=== PATIENT | male | born 1945 | race Caucasian/White ===

== ENCOUNTER 2023-09-08 10:31 | Day surgery (SDC) | payer MEDICARE, OTHER, SELFPAY ==
[2023-09-08] VITALS (13 sets, daily range): BP systolic 117–150; BP diastolic 68–95
--- NOTE | 2023-09-08 07:53 | CONSULT.STRU ---
Addendum entered and electronically signed by VITA Akins 09/15/23 12:52:
Reviewed Mr. Moran with Drs. Brothers and Nona. Both are agreeable that patient is an appropriate candidate for a TF TAVR utilizing a #26mm S3. He has completed his preadmission testing 09/14 for potential TAVR 09/16. He has been informed of the risks
of TAVR including ppm, vascular injury, and stroke. Spoke to Mr. Lomax today (09/15) and informed him to arrive to CVICU on (09/16) at 0530. He should take his 81 mg aspirin DEVELOPMENTAL PSYCHOLOGIST. Allowed for and answered questions. TT sent to Drs. Kumar and Rosalba
to inform them of plan.
Original Note:
Consultation
-
Date/Time Consultation Requested: 09/08/2023 14:30
Date/Time Consultation Performed: 09/08/2023 1445
Requesting Provider: Artemio Kumar MD
Performing Provider: VITA Akins
Reason for Consultation: /TAVR
Patient History
Physicians
Family Physician: Tonio Sepulveda MD
Outpatient Supply Chain Tech: Madi Navarrete MD
Primary Supply Chain Tech: Madi Navarrete MD
History of Present Illness
Mr. Moran is a very pleasant 78 yom that presents with critical asymptomatic aortic stenosis. Patient states he is very active and continues to have the same exercise tolerance that he had one year ago. However, he states he had a brief episode
while lifting weights describing the sensation of a 'light bulb dimming'. Echocardiogram from 08/10/2023 is notable for EF 63.6%, AOV Scott: 5.78m/s, AV P/M 133.7/74.6mmHg, AoVA: 0.47, DI 0.15, Mild to moderate MR, RVSP: 33.2 mmHg. Cardiac
catheterization from 09/08/2023 shows clean coronary arteries. Discussed the TAVR evaluation process comprising of CT scan, CT surgery consult, dental clearance, and a heart team discussion. TAVR booklet, contact information, prescriptions, and
appointments given to patient. allowed for and answered questions at bedside.
Past Medical History
Past Medical History: HTN, GAURANG (unable to tolerate CPAP), Valvular Disease (Severe-critical ) and Other (mixed hyperlipidemia, RBBB)
Past Surgical History
Past Surgical History: Orthopedic (bilateral shoulder surgeries)
Dental History
Routine dental care with [facility]. Has recently changed practices to [facility].
Family History
Mother: at Age (69) and Cause of (bone cancer)
Father: at Age (85) and Cause of (multiple strokes)
Social History
Alcohol: Occasional (1-2 drinks/ week)
Drug: None
Tobacco: Former Smoker
Personal:
Living: With Spouse
Employment: Retired (Retired [employer]. 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
Allergies
Allergy/AdvReac Type Severity Reaction Status Date / Time
No Known Allergies Allergy Unverified 09/22/18 08:23
Home Medications
Medication Instructions Recorded Confirmed Type
Co Q-10 1 tab PO DAILY 02/18/17 05/05/21 History
losartan 50 mg tablet 50 mg PO DAILY 02/18/17 05/05/21 History
multivitamin-ferrous 1 ea PO DAILY 02/18/17 05/05/21 History
fumarate-folic acid 18 mg-400 mcg
tablet (Centrum)
omega 9-xkl-hzs-fish oil 300 1 ea PO DAILY 02/18/17 05/05/21 History
mg-1,000 mg capsule (Fish Oil)
pravastatin 20 mg tablet 20 mg PO HS 02/18/17 05/05/21 History
vit C 250 mg-vit E 90 mg-zinc 40 1 ea PO BID 02/18/17 05/05/21 History
mg-copper 1 od-dfrbjh-wplhlt
capsule (PreserVision AREDS-2)
albuterol sulfate 90 mcg/actuation 8.5 gm IH PRN PRN sob 05/05/21 05/05/21 History
aerosol inhaler
doxycycline hyclate 100 mg capsule 100 mg PO Q12 05/05/21 05/05/21 History
STS%
STS %: 1.1
Review of Systems
-
History Source: Patient
General: Reports No Symptoms
HEENT: Reports No Symptoms
Respiratory: Reports No Symptoms
Cardiac: Reports No Symptoms
Abdomen/GI: Reports No Symptoms
: Reports No Symptoms
Neurological: Reports No Symptoms
Physical Exam
Labs
07/09/2024:
HH: 13.7/40.9
Plt: 182K
BUN/Creatinine: 21/0.94
GFR: 83
Diagnostic Studies
07/09/2023 EKG:
RBBB, LVH
08/10/2023 Echocardiogram:
EF 63.6%
AOV Scott: 5.78m/s, AV P/M 133.7/74.6mmHg, AoVA: 0.47, DI 0.15
Mild to moderate MR
RVSP: 33.2 mmHg
Exam
General: Well Developed, Well Nourished and No Apparent Distress
HEENT: Normocephalic and Moist Mucous Membranes
Respiratory: Clear
Cardiac: Regular Rhythm and Murmur (III/ WILLY)
GI: Soft, Non Tender and Non Distended
Rectal: Deferred by Provider
Skin: Warm and Dry
Neuro: Awake, Alert and Oriented
Psych: Calm
Assessment / Plan
-
Aortic Stenosis
Continue TAVR Evaluation
Trend Creatinine after contrast (Rx given)
CT TAVR (09/15)
CT surgical consult (09/09)
Frailty testing and [id number] at consult
Will need to start aspirin prior to TAVR
Dental clearance
Heart team discussion
Data Reviewed
-
EKG: Tracing Personally Visualized and interpreted and Report Reviewed by me
Dining Car Steward: Discussed with Physician
Echo: Report Reviewed by me
Labs: Labs Reviewed by me
Old Records: Reviewed (OV from Dr. Navarrete)
Total Time Spent with Patient (in minutes): 45
[2023-09-08] MEDS: LOW STRENGTH ASPIRIN 324 MG PO (13:42)
[2023-09-08] MEDS: NSS 1000 IV ×2 (16:03→16:08)
--- NOTE | 2023-09-10 17:35 | ITS.CL.CATH ---
Transporter Driver - Catheterization
Cardiac Catheterization
Procedure Report:
LEFT HEART CATHETERIZATION
Date of Procedure: September 10, 2023
Procedures performed:
1: Coronary angiography
Primary Care Physician: Dr. Tonio Sepulveda
Primary Airplane Engineer: Dr. Madi Navarrete
INDICATION: The patient is a 78-year-old man with critical aortic stenosis referred for coronary angiography.
ACCESS: The patient was prepped and draped in usual sterile fashion. A 6 Macedonian sheath was placed in the right radial artery using the Seldinger over the wire technique.
HEMODYNAMIC FINDINGS (mmHg):
LV(s/d,EDP): Valve not crossed
Ao(s/d,m): 115/67, 86
ANGIOGRAPHIC FINDINGS:
Single-plane Left Ventriculography in MATTHEWS Projection: Valve not crossed. Normal LVEF by recent echo with a mean gradient over 70 mmHg.
Coronary Angiography:
Dominance: Right
Left Main: Normal
Left Anterior Descending: The LAD is a large-caliber vessel that gives rise to 1 major diagonal branch. These vessels are widely patent with normal distal flow.
Left Circumflex: The left circumflex is a relatively large nondominant system that gives rise to 1 large obtuse marginal branch that is widely patent with mild to moderate nonobstructive luminal irregularity.
Right Coronary: The right coronary artery is a large-caliber vessel that gives rise to a large caliber posterior descending artery and large posterior left ventricular branch. These vessels are widely patent with only mild luminal irregularities.
Fluoroscopy Time (min): 1.3
Radiation Dose (mGy): 155
DAP (Gy.cm2): 10.3
Closure device: None. A TR band was applied for hemostasis at the right wrist.
Complications: None.
ASSESSMENT:
1: Mild nonobstructive coronary artery disease
CONCLUSIONS and RECOMMENDATIONS:
1: Proceed with planned TAVR workup.
Salvador Kumar M.D.
Copy to: Dr. Tonio Sepulveda
== END 2023-09-08 17:30 | disposition home or self-care (01) ==
LOC: CATH 10:31
PROVIDERS: ATTENDING PHYSICIAN Internal Medicine Interventional Cardiology; FAMILY PHYSICIAN Family Medicine; OTHER PHYSICIAN Internal Medicine Cardiovascular Disease
DX: I35.0 Nonrheumatic aortic (valve) stenosis (principal); I25.10 Atherosclerotic heart disease of native coronary artery without angina pectoris; I10 Essential (primary) hypertension; E78.2 Mixed hyperlipidemia; G47.33 Obstructive sleep apnea (adult) (pediatric); Z87.891 Personal history of nicotine dependence
CPT/HCPCS: 93454; C1894; Q9967

== ENCOUNTER 2023-09-16 05:33 | Inpatient (IN) | payer MEDICARE, OTHER, SELFPAY ==
[2023-09-14 09:16] VITALS: BMI 27.7
[2023-09-14 09:59] LABS: % Basophils 0.8 % (0-2); % Eosinophils 3.8 % (0-6); % Immature Granulocytes 0.5 % (0-0.5); % Lymphocytes 21.8 % (20.5-51.1); % Monocytes 12.1 % (1.7-9.3); Absolute Eosinophils 0.1 10^3/uL (0-0.7); Absolute Lymphocytes 0.8 10^3/uL (1.2-3.4); Absolute Monocytes 0.5 10^3/uL (0.1-0.6); Absolute Neutrophils 2.3 10^3/uL (1.4-6.5); Hematocrit 39.1 % (39.0-52.0); Hemoglobin 13.7 g/dL (13.0-18.0); Mean Corpuscular Hgb 31.4 pg (27.0-31.0); Mean Corpuscular Volume 89.5 fL (80.0-94.0); Nucleated Red Blood Cells % 0 % (-); Platelet Count 173 10^3/uL (130-400); Red Blood Cell Count 4.37 10^6/uL (4.70-6.10); White Blood Cell Count 3.7 10^3/uL (4.8-10.8)
[2023-09-14 10:16] LABS: ALT (SGPT) 18 U/L (0-50); AST (SGOT) 26 U/L (17-59); Albumin 3.7 g/dl (3.5-5.0); Alkaline Phosphatase 61 U/L (38-126); Blood Urea Nitrogen 22 mg/dl (9-20); Calcium 9.1 mg/dl (8.4-10.2); Carbon Dioxide 28 mmol/L (22-30); Chloride 100 mmol/L (98-107); Direct Bilirubin 0.3 mg/dl (0.0-0.4); Estimated Creatinine Clearance 70 ml/min; Glucose 114 mg/dl (70-99); Potassium 4.4 mmol/L (3.5-5.1); Sodium 135 mmol/L (135-145); Total Bilirubin 0.7 mg/dl (0.2-1.3); Total Protein 6.2 g/dl (6.3-8.2); eGFR > 60.00
[2023-09-14 10:19] LABS: Urine Albumin Negative (Neg - Trace); Urine Bilirubin Negative (Negative); Urine Character Clear (Clear); Urine Color Yellow; Urine Glucose Negative (Negative); Urine Ketone Negative (Negative); Urine Leukocyte Negative (Negative); Urine Nitrite Negative (Negative); Urine Occult Blood Negative (Negative); Urine Urobilinogen Negative (Neg - 1+)
[2023-09-14 10:25] LABS: APTT 30.4 Sec (23.4-35.0); INR 1.08; PT 13.9 Sec (11.4-14.6)
[2023-09-14 10:27] LABS: NT-proBNP 1050 pg/ml
[2023-09-14 11:43] LABS: Glycohemoglobin (HgbA1c) 5.6 % (4.0-5.6)
--- NOTE | 2023-09-14 13:18 | CM ---
spoke to pt in PAT's, we discussed pre op TAVR teaching in including lifting and driving restrictions.. he is prev indep, lives with his in a split level home with 2 steps to enter. he has a CPAP but hasnt been wearing because he does not like
his mask. he has the TAVR educ book, soap and instructions. he is agreeable to a f/u visit from the ct transitional care nurse after dc. plan is for TAVR 09/16, cm role explained and all questions answered.
[2023-09-16] VITALS (21 sets, daily range): BP systolic 96–168; BP diastolic 56–91; BMI 27.0
[2023-09-16] MEDS: LOW STRENGTH ASPIRIN 324 MG PO (06:05)
--- NOTE | 2023-09-16 06:15 | PTCARENOTE ---
Pt rec'd as direct admit from home for tavr. Pt was prepped with chg wipes, clipped and new iv started in right forearm. Adm hx taken and recorded.
4 baby asa given after pt stated he forgot to take at home. Spouse at bedside
--- NOTE | 2023-09-16 06:20 | W.CVOR.SURPR ---
CVOR Surgeon Immed Pre Op
-
I have examined this patient prior to performance of the scheduled procedure.
The patient's condition is unchanged from the time of the dictated/written History and
Physical and the patient is able to undergo the scheduled procedure.
TF TAVR
[2023-09-16 08:18] LABS: ACT-LR - POC 300 Seconds (116-155)
--- NOTE | 2023-09-16 08:43 | W.PN.UPDATE ---
Update Note
Progress Note Update
Reviewed Mr. Lomax with the heart team in the preTAVR SDM meeting and confirmed a 26 mm S3 via right transfemoral access. Patient will resume 81 mg aspirin daily post TAVR. LVEDP 35mmHg. #26mm S3 (serial# [id number]) successfully deployed via right
transfemoral access. Post implant MG 7 mmHg.
--- NOTE | 2023-09-16 09:21 | W.PN.CT.SURG ---
CT Surgery Operative Note
-
OPERATIVE REPORT
Preoperative Diagnosis: Severe aortic valve stenosis, symptomatic
Postoperative Diagnosis: Same
Procedure(s) Performed: Right trans femoral TAVR with a 26 mm Franco TAVR valve with pre-TAVR balloon valvuloplasty
Date of Procedure: 09/16/2023
Comorbidities:
1. Severe aortic stenosis, symptomatic
2. Acute on chronic congestive heart failure, LVEDP pre-TAVR was 33 mmHg
3. Hypertension
4. Hyperlipidemia
5. Carotid artery stenosis
6. History of skin cancer
Cardiac Surgeon: Jarrell Castellano MD, MS
Defective Cigarette Slitter: Kat Brothers MD
Anesthesia: Conscious Sedation and Local Analgesia
EBL: 100cc
Products: none
Implant: 26 mm Franco TAVR valve, SN: [id number]
Indication(s) for Procedures: 78-year-old male with symptomatic severe aortic stenosis. Gradients were critical in the 70s with a mean and velocities were in the 5 m/s range. CT-TAVR protocol revealed acceptable anatomy for TAVR access and
implantation.
Start time: 0743hrs
Deployment time: 0820hrs
End time: 0833hrs
Radiation Dose (mGy): 378.45
DAP (cm2.Gy): 41.9574
Fluoroscopy time (minutes): 11.2
Contrast volume (ml): 61
TAVR gradient (mmHg): 7mmHg
Heparin Dose: 6800units
Protamine Dose: 40mg
Final Valve Positionin/10
Findings: Preoperative LVEF was 65% and was 65% following TAVR without inotropic support. Function was overall normal without regional wall motion abnormalities or dyskinesia. The aortic valve was well seated with only trace detectable PVL and mean
gradient across the new valve was 7mmHg. the patient had a pre-existing right bundle branch block that remained the same postoperatively. After short period of junctional rhythm he regained sinus rhythm without requiring pacing and had the same
baseline right bundle branch block. There was successful placement of 26 mm TAVR valve without acute complications. Pre-TAVR LVEDP measurement was 33 mmHg indicating acute on chronic congestive heart failure. Lasix will be given in the ICU
setting.
Access:
1. Device -right common femoral artery, perclose x 2
2. Pigtail -right radial with TR band
3. Transvenous Pacer -left common femoral vein
Description of Procedure: The patient was taken to the labor custodian. Their identity and procedure to be performed were verified and they were positioned supine on the labor custodian table. Induction via conscious sedation. The patient was then prepped and
draped from chin to thigh in a sterile fashion. A preoperative time-out was performed with all members of the team present. Arterial and venous access was performed using fluoroscopy and ultrasound guidance with micropuncture and Seldinger
technique. Two perclose devices were used on the device side followed by access to the aorta with a stiff wire to facilitate E-sheath placement. Heparin was given. A stiff straight wire and AL-1 catheter was used to cross the aortic valve. An LVEDP
was measured here pre-TAVR deployment. The stiff wire was exchanged for an extra stiff coiled tip wire. The valve was prepped and mounted on to the device carrier. An ACT of >250 was achieved. A 22 mm Z-Med balloon was then prepped and placed
across the valve and under rapid placing was inflated with good effect. Balloon was then withdrawn from the device she has and we verified x 3 that the valve was mounted in the correct orientation with the skirt of the valve directed toward the tip
of the device carrier. We advanced the device into the descending thoracic aorta where the valve was them mounted onto the balloon under fluoroscopy. The device was flexed and advanced over the arch into the root and positioned across the aortic
valve. Contrast fluoroscopy was used to visualize the prosthesis across the valve and to guide positioning. A pigtail catheter in the RCC as used as a guide. We aimed to have the bottom of the device marker at the annular hinge point. The device
sheath was pulled back. We performed a quick pre-deployment time out. The pacer was turned on and had capture. Blood pressure fell accordingly, angiography was done to verify the intended final placement and the valve was deployed with 5 seconds of
rapid pacing to nominal volume. The balloon was deflated and the pacer was turned off. We had recovery of vitals. The device carrier was unflexed and positioned back in the descending thoracic aorta. A transthoracic echocardiogram was performed. The
device was removed from the E-Sheath maintaining wire access followed by removal of the E-sheath as we cinched down the perclose devices. There was acceptable hemostasis. The pigtail was exchanged for a longer pigtail and advanced into the
descending/abdominal and completion aortogram with runoff run-off angiography was performed. There was no stenosis or dissection of bilateral iliofemoral systems. There was acceptable hemostasis of bilateral groins and manual pressure was held
following wire removal. A TR band was applied to the right radial puncture site. Low dose protamine was administered.
All instrument, sponge, and needle counts were confirmed to be correct x 2 at the end of the operation. The patient was transferred to the cardiac intensive care unit in stable condition.
I, Dr. Jarrell Castellano, was present, scrubbed for, and performed all critical elements of this procedure.
Jarrell Castellano MD
Cardiothoracic Surgeon
[facility]
This operative dictation was created using the [employer] dictation system. Please excuse any grammatical, typographical, or 'sound alike' errors
--- NOTE | 2023-09-16 10:46 | PTCARENOTE ---
Assumed care of pt upon tsf from CCL post TAVR. Pt arrives on unit awake and alert, Ox3. VSS. Right radial band intact with good CMS. Bilateral groins remain intact. He denies any pain or discomfort. Neuro signs WNL. Will continue to monitor
closely. at bedside.
--- NOTE | 2023-09-16 11:50 | ITS.CL.TAVR ---
Library Clerk - TAVR Report
TAVR PRocedure
Procedure Report:
TRANSCATHETER AORTIC VALVE REPLACEMENT
Date of Procedure: September 16, 2023
Referring: Drs. Madi Navarrete and Salvador Kumar
Operators: Drs. Kat Brothers and Jarrell Castellano
PROCEDURE PERFORMED:
1. Successful placement of 26 mm Franco Alexis S3 aortic valve via right common femoral approach.
PREPROCEDURE NYHA CLASS: II
DESCRIPTION OF PROCEDURE: The patient was referred for assessment of severe symptomatic aortic stenosis and following a comprehensive evaluation it was felt that transcatheter aortic valve replacement (TAVR) would be the most appropriate treatment.
Informed consent was obtained prior to the procedure. A 'time-out' was called and the procedural plan was verbally confirmed by anesthesia, surgery, perfusion, and kiln labourer staff.
Arterial and venous access site were obtained in the right radial artery and left common femoral vein using ultrasound guidance and micropuncture technique. 6 Fr. sheaths were inserted.
A 5 Fr. transvenous pacing wire was advanced to the right ventricle where excellent pacing thresholds were obtained.
A 5 Fr. pigtail catheter was then advanced to the proximal ascending aorta / right aortic cusp where angiography was performed in multiple angles to define the co-planar angle that was most appropriate valve deployment (URDU 6/ CAU 23).
Ultrasound guidance was then used to obtain arterial access in the right common femoral artery and a 8 fr. sheath was inserted. Angiography was performed and the arteriotomy site appeared appropriate for preclosure with two Perclose devices. An 8
Fr sheath was then inserted back into the common femoral artery over a J-tipped guidewire. An AL1 catheter was positioned in the proximal descending aorta. An Amplatz extra-stiff 0.035' J-tip wire was inserted to provide extra-support to
facilitate the Franco eSheath delivery. The 16 Fr. Franco eSheath was successfully advanced in the descending thoracic aorta.
An AL1 catheter was advanced through the Franco eSheath over a 0.035' J-tip guide wire. The AL1 catheter was positioned just above the aortic valve. A 0.035' Straight tip wire probed the aortic valve and crossed the stenotic leaflets. The AL1
was then advanced to the mid left ventricle. Invasive left ventricular end-diastolic pressure was noted to be elevated at 33 mmHg. An Amplatz Extra-stiff wire with a generous curved tip was then positioned in the left ventricular apex. A 26 mm
Franco Alexis S3 valve was brought to the table and the orientation of the valve on the balloon delivery system was confirmed by all operators. Given significantly elevated trans aortic gradients, decision was made to perform a balloon aortic
valvuloplasty with a 22 mm Z-Med balloon with excellent expansion. The Alexis S3 valve was advanced through the eSheath and into the proximal descending thoracic aorta. The Alexis S3 valve was centered on the delivery balloon and the entire system
was retroflexed as it crossed the aortic arch. The Alexis S3 delivery system was then advanced across the stenotic valve and the 26 mm Alexis S3 valve was deployed during rapid pacing. The valve deployment was uneventful. Transthoracic
echocardiographic images post valve deployment revealed minimal aortic insufficiency with excellent position of the aortic prosthesis.
The Franco balloon and delivery system were then removed. The Franco sheath was removed and the Perclose knots were advanced to the arteriotomy site resulting in excellent hemostasis. A vascular band was placed over the right radial arterial site
with successful hemostasis.
Fluoro Time: 11.2 min, Dose: 378.45 mGy, DAP : 41.9 Gy.cm2
CONCLUSIONS:
1. Severe symptomatic aortic stenosis. Successful deployment of a 26 mm Alexis S3 valve with minimal aortic insufficiency post procedure
2. Successful arteriotomy closure with 2 Perclose devices over right common femoral arterial site. A vascular band was placed over the right radial arterial site with successful hemostasis (10cc air).
3. Acute on chronic diastolic heart failure, LVEDP elevated at 33 mmHg.
Copy to: Madi Navarrete and Salvador Kumar
Kat Brothers MD, FAC, [facility]
--- NOTE | 2023-09-16 11:57 | CM ---
Chart reviewed. Patient is in the OR today. Patient is independent of ADLS, lives with his in a split level house iwth 2 DARA, 0 DME. Plan is for the patient to return home with CT Transitional RN. CM to follow
[2023-09-16] MEDS: THERAGRAN 1 TABLET PO (12:55)
[2023-09-16] MEDS: LASIX 20 MG IV (12:55)
--- NOTE | 2023-09-16 13:21 | PTCARENOTE ---
R-band removed as ordered, DSD applied, site intact. Lasix 20 mg IV and Multivitamin given as ordered.
[2023-09-16] MEDS: ZINACEF 750 MG IV (13:55)
[2023-09-16] MEDS: STERILE WATER FOR INJECTION 8.30000000000000071 ML IV (13:55)
[2023-09-16] MEDS: TYLENOL 650 MG PO (16:05)
--- NOTE | 2023-09-16 16:16 | PTCARENOTE ---
Tylenol 650 mg given po as per SEP for h/a pain 10/09.
[2023-09-16] MEDS: FLOMAX 0.400000000000000022 MG PO (22:22)
[2023-09-16] MEDS: MELATONIN 5 MG PO (22:27)
--- NOTE | 2023-09-16 23:34 | PTCARENOTE ---
Pt received start of shift, HR SR/SB w/ BBB and prolonged QT 50s-90s. Pt's neuro wnl. Pt OOB in chair. R radial site dressing CDI. R groin site CDI, L groin site CDI. Pt denies any CP, SOB, or lightheadedness/dizziness at this time. Informed to
notify RN if any changes, call alvarado within reach.
[2023-09-17 02:55] VITALS: BP 132/69
[2023-09-17 03:37] LABS: Hemoglobin 12.9 g/dL (13.0-18.0); Mean Corp Hgb Conc. 34.9 g/dL (33.0-37.0); Mean Corpuscular Hgb 31.8 pg (27.0-31.0); Mean Corpuscular Volume 91.1 fL (80.0-94.0); Mean Platelet Volume 10.9 fL (7.4-10.4); Platelet Count 141 10^3/uL (130-400); Red Blood Cell Count 4.06 10^6/uL (4.70-6.10); Red Cell Dist. Width 12.2 % (11.5-14.5); White Blood Cell Count 8.1 10^3/uL (4.8-10.8)
[2023-09-17 04:00] LABS: Blood Urea Nitrogen 20 mg/dl (9-20); Calcium 8.6 mg/dl (8.4-10.2); Carbon Dioxide 29 mmol/L (22-30); Chloride 103 mmol/L (98-107); Estimated Creatinine Clearance 71 ml/min; Glucose 108 mg/dl (70-99); Sodium 135 mmol/L (135-145); eGFR > 60.00
--- NOTE | 2023-09-17 05:38 | W.PN.CT ---
Today's Communication / Plan
-
-pod #1
-no issues overnight
-known RBBB
-nsr 60s overnight. No harlan or pauses
-diuresed with 20 iv Lasix 09/16 (UO unmeasured)
-Echo today
-current meds (ASA, Cozaar, Flomax)
-encourage IS, OOB
-likely d/c soon
Assessment / Plan
-
- Severe symptomatic AV stenosis - s/p Right trans femoral TAVR with a 26 mm Franco TAVR valve with pre-TAVR balloon valvuloplasty on 09/16/23, pod #1
- Acute on chronic diastolic congestive heart failure, LVEDP pre-TAVR was 33 mmHg
- TTE: preop and postop LVEF was 65% without inotropic support, no regional wma or dyskinesia. The aortic valve was well seated with only trace detectable PVL and mean gradient across the new valve was 7mmHg.
- After short period of junctional rhythm, he regained sinus rhythm without requiring pacing and had the same baseline right bundle branch block.�
- HTN/HLD
- Pre-existing RBBB
- Carotid artery stenosis
- History of facial BCC skin cancer- s/p Mohs
- L RTC repair
- Cataract repair
�
Discussed patient care with: Nursing and Care Team
Subjective
Procedure
- s/p Right trans femoral TAVR with a 26 mm Franco TAVR valve with pre-TAVR balloon valvuloplasty on 09/16/23
-
Date of Service: September 16, 2023
Objective Data
-
Lab Results
09/14/23 09:28
09/14/23 09:28
PT 13.9 Sec (11.4-14.6) 09/14/23 09:28
INR 1.08 09/14/23 09:28
APTT 30.4 Sec (23.4-35.0) 09/14/23 09:28
Vital Signs
Vital Signs
Temp Pulse Resp BP Pulse Ox
98.0 F 60 18 155/80 98
09/16/23 20:40 09/16/23 21:45 09/16/23 20:40 09/16/23 19:15 09/16/23 20:40
SaO2: 98
Physical Exam
-
General: Awake and AOx3
Cardiovascular: Regular rate & rhythm, No Murmurs and No Rub
Respiratory: Clear
Incision: Other (groins are cdi, soft, nontender, no hematoma b/l)
Extremities: No Edema
Data Reviewed
-
Lab Results: Results Reviewed
Medications: Active Meds Reviewed
Chest X-Ray: Report Reviewed and Image Reviewed
ECG: Report Reviewed and Image Reviewed
--- NOTE | 2023-09-17 07:26 | W.PN.ANS.POP ---
Anesthesia Post Operative
- Anesthesia Post Op Note
Vital Signs Stable-See Nursing Note: Yes
Airway Patent: Yes
Adequate Pain Control: Yes
Change in Mental Status: No
Current Postoperative Nausea & Vomiting: No
Anesthesia Complications: No
General Anesthetic Recall: No
Unplanned Admission: No
Post Op Hydration Adequate: Yes
[2023-09-17 07:29] VITALS: BP 120/60
--- NOTE | 2023-09-17 07:50 | W.DCSUMMARY ---
Discharge Summary
Discharge Data
Date of Admission: 09/16/23
Date of Discharge: 09/17/23
-
Pending Results: No
Hospital Course
Primary care physician:
Dr. Tonio Sepulveda
Outpatient commissioned fire officer:
Dr. Navarrete
Inpatient consultants:
[facility]
Procedures:
1. Right trans femoral transcatheter aortic valve replacement with a 26 mm Franco transcatheter aortic valve replacement valve with pre- transcatheter aortic valve replacement balloon valvuloplasty
Primary Diagnosis:
1. Severe aortic valve stenosis, symptomatic
Secondary Diagnoses:
1. Acute on chronic congestive heart failure
2. Hypertension
3. Hyperlipidemia
4. Carotid Artery Stenosis
HPI: 78-year-old male with symptomatic severe aortic stenosis.� Gradients were critical in the 70s with a mean and velocities were in the 5 m/s range. CT- transcatheter aortic valve replacement protocol revealed acceptable anatomy for
transcatheter aortic valve replacement access and implantation.
Hospital course:
78-year-old male electively admitted for a transcatheter aortic valve replacement with Dr. Castellano on 09/16. 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
LVEDP of 33. EKG postoperatively did not show any changes. He was sent to IVU for the rest of his recovery. On 07/17 postop day #1, groins remained stable. Chest x-ray remained stable. And repeat echocardiogram showed a peak/mean gradient of
22/45. he was started on Toprol-XL 12.5mg and instructed to get a follow up echocardiogram 30 days post-procedure. Patient was deemed stable for discharge and there were no significant changes to home medications.
Home medication changes:
Started:
Aspirin 81mg PO Daily fpr valve patentcy
Toprol-XL 12.5mg PO daily was started for blood pressure and heart rate control
Discharge Plan
-
Patient Disposition: Home (Routine Discharge)
Discharge Diagnosis/Procedures: /TF TAVR
Condition: Fair
Diet: Low Sodium
Activity: No strenuous activity
Driving Restrictions: No driving for 1 week
Bathing Restrictions: OK to Shower
Others Tests: Please call Dr. Navarrete's office to schedule Echocardiogram in 30 days
Wound Care: No creams,lotion or powder to puncture sites
Call if pain,swelling or drainage appear
Specialty Instructions: Weigh Daily- Call MD for wt gain/loss 3 lbs overnight/5 lbs in 1 week
Referrals:
CT Transitional Care Nurse [Outside] (The Cardiothoracic Transitional Care Nurse will call you to set up a visit in 1-2 days.)
[facility] [Outside]
(Cardiac Rehab Orientation appointment is on 10/25/2023 @ 1pm.
The Cardiac Rehab gym is located on the first floor of the [facility].)
Salvador Navarrete MD [Affiliate] - 10/08/23 11:15 am
Tonio Sepulveda MD [Family Provider] -
Prescriptions:
New
acetaminophen 325 mg Tablet
650 mg PO Q6HPRN PRN (Reason: XIE, mild pain, or fever >101F) Qty: 0 0RF
aspirin 81 mg Tablet,Delayed Release (Dr/Ec)
81 mg PO DAILY Qty: 0 0RF
metoprolol succinate [Toprol XL] 25 mg tablet extended release 24 hr
12.5 mg PO DAILY Qty: 30 0RF
Continued
losartan 50 MG tablet
100 mg PO DAILY
tamsulosin 0.4 mg Capsule
0.4 mg PO HS
cholecalciferol (vitamin D3) [Vitamin D3] 10 mcg (400 unit) Capsule
50 mcg PO DAILY
melatonin 5 mg Tablet
5 mg PO HS PRN (Reason: as needed)
Centrum Men 8 mg iron- 200 mcg-600 mcg Tablet
1 tab PO DAILY
Prevagen
1 dose PO DAILY
Discontinued
terbinafine HCl 250 mg Tablet
250 mg PO DAILY
biotin
1 dose PO DAILY
Care Plan Goals
Care Plan Goals:
Problem: Readiness for enhanced knowledge related to diagnosis and treatment plan
Goal: Understand your diagnosis and treatment plan needs, including medications if applicable.
Instructions: Know your diagnosis, underlying causes and treatment plan options, including medications if applicable. Consult with your health care team to learn about your diagnosis and treatment plan, including medications if applicable.
--- NOTE | 2023-09-17 08:54 | W.PN.CARDCBS ---
Addendum entered and electronically signed by Sascha Loomis MD 09/17/23 09:52:
78-year-old man with severe aortic stenosis, hypertension, hypercholesterolemia, sleep apnea, baseline right bundle branch block, cerebrovascular disease who underwent TAVR yesterday with a 26 mm Franco ALEXIS 3 on September 16. He had transient
junctional rhythm but no left bundle branch block
PMH: As noted above, PSH/FH/SH: Reviewed
Medications reviewed
Allergies none
ROS negative except as above
132/69, pulse 66, respiratory 20, afebrile
Head neck exam unremarkable
Lungs are clear
Relatively soft systolic murmur across precordium
Abdomen benign
Puncture sites look okay
Neuro nonfocal
Musculoskeletal intact's
Pulses palpable
Chest x-ray NAD
ECG sinus rhythm, normal CO interval, right bundle branch block, LVH, rightward axis, ST and T wave changes, no changes
Hemoglobin 12.9, white count 8.1, BUN and creatinine 20 and 0.86
He had junctional rhythm initially at time of valve deployment
Echo 09/17/2023: LVH with very dynamic left ventricle, possible LVOT obstruction, peak/mean aortic valve gradient 45/23, had been 13/7. Trace aortic regurgitation
Impression:
Status post 26 Franco ALEXIS 3 TAVR 09/16
Baseline right bundle branch block
Junctional rhythm at valve deployment
Increased aortic valve gradient postprocedure day 1
Hypertension
Sleep apnea
Plan:
Overall, he looks well. However his aortic valve gradients are elevated. Discussed with TAVR team, nothing further required at present, but will repeat echo in [address] Navarrete is aware.
Increased gradient could be dynamic LVOT obstruction, will add metoprolol ER 12.5 mg a day.
Given junctional rhythm and baseline right bundle branch block we will arrange for rhythm*at discharge.
Discussed with patient. Okay for discharge.
Original Note:
Today's Communication / Plan
-
Patient doing well status post TAVR postop day 1
Post TAVR echo pending
Good response to IV Lasix without symptoms of heart failure
Stable rhythm
If post TAVR echo stable discharge home today
Impression / Plan
-
PCP: Tonio pina
Outpatient forensic ballistics expert: Dr. Navarrete
Impression:
Severe symptomatic aortic stenosis
Successful placement of 26 mm Franco Alexis S3 aortic valve via right common femoral approach (09/16/2023)
HTN/HLD
GAURANG
Pre-existing RBBB
Carotid artery stenosis
History of facial BCC skin cancer- s/p Mohs
L RTC repair x 2
Cataract extraction
Echo 09/16/2023: preop and postop LVEF was 65% without inotropic support, no regional wma or dyskinesia. The aortic valve was well seated with only trace detectable PVL and mean gradient across the new valve was 7mmHg.
Echo 09/17/2023: pending
Plan:
-Severe symptomatic aortic stenosis s/p 26 mm Franco Alexis S3 aortic valve via right common femoral approach (09/16/2023)
-Patient reports that he is feeling well. He is able and able to ambulate around the unit without any chest pain, shortness of breath dizziness or lightheadedness.
-Post TAVR aortic valve mean gradient 7 mmHg. Echo 09/17/2023 pending.
-Hemoglobin stable 12.9. Continue aspirin 81 mg daily
-Known right bundle branch block prior to TAVR. No arrhythmias noted overnight or new heart block noted on tele.
-Post TAVR EKG 09/17/2023 shows sinus rhythm with sinus arrhythmia, right bundle branch block stable with T wave abnormality in inferolateral leads unchanged from preprocedural EKG.
-Noted to have elevated LVEDP pre-TAVR 33 mmHg. Patient was diuresed with IV Lasix 20 mg x 1 09/16/2023. Reports excellent response. Appears to be euvolemic and denies shortness of breath, orthopnea, PND or edema.
-Blood pressure stable overnight resume outpatient losartan.
Progress Note - Wool Buyer
Subjective
Date of Service: September 17, 2023
Patient seen and examined. Patient sitting up in chair. Reports he has been able to ambulate around the unit without chest pain, shortness of breath, dizziness, lightheadedness. Slept well without edema orthopnea. Eager to go home.
Objective
Labs:
09/17/23 03:00
09/17/23 03:00
Labs
Hgb 12.9 g/dL (13.0-18.0) L 09/17/23 03:00
Hct 37.0 % (39.0-52.0) L 09/17/23 03:00
Plt Count 141 10^3/uL (130-400) 09/17/23 03:00
PT 13.9 Sec (11.4-14.6) 09/14/23 09:28
INR 1.08 09/14/23 09:28
APTT 30.4 Sec (23.4-35.0) 09/14/23 09:28
Sodium 135 mmol/L (135-145) 09/17/23 03:00
Potassium 4.0 mmol/L (3.5-5.1) 09/17/23 03:00
BUN 20 mg/dl (9-20) 09/17/23 03:00
Creatinine 0.8 mg/dL (0.7-1.3) 09/17/23 03:00
Glucose 108 mg/dl (70-99) H 09/17/23 03:00
Vital Signs and I&O:
Vital Signs
Temp Pulse Resp BP Pulse Ox
97.9 F 66 20 132/69 93
09/17/23 07:27 09/17/23 03:00 09/17/23 07:27 09/17/23 02:55 09/17/23 07:27
Vital Signs
Temp Pulse Resp BP Pulse Ox
97.9 F 66 20 132/69 93
02/16/24 07:27 09/17/23 03:00 09/17/23 07:27 09/17/23 02:55 09/17/23 07:27
Physical Exam
Physical Exam
GEN: No distress, awake, Ox3
HEENT: supple, anicteric, mmm
LUNGS: CTA, no wheezes/rales griselda
CV: Reg, S1/S2, 1/6 syst murmur, no rubs or gallops
ABD: soft, BS+, NT/ND
EXT: No edema, clubbing or cyanosis
NEURO: Gross non-focal
SKIN: No rash, warm, dry, pink
[2023-09-17] MEDS: COZAAR 100 MG PO (09:38)
[2023-09-17] MEDS: ASPIR LOW (ENTERIC COATED) 81 MG PO (09:38)
[2023-09-17] MEDS: THERAGRAN 1 TABLET PO (09:39)
[2023-09-17] MEDS: TOPROL XL 12.5 MG PO (09:43)
--- NOTE | 2023-09-17 11:41 | W.PN.UPDATE ---
Update Note
Progress Note Update
R[employer]star monitor applied to patient on discharge. Reviewed instructions on how to apply, report symptoms, charge and postdoctoral research associate with patient. Allowed for and answered questions.
== END 2023-09-17 12:18 | disposition home or self-care (01) | DRG 266 ==
LOC: IVU 05:33
PROVIDERS: Physician Assistant Surgical; ADMITTING PHYSICIAN Thoracic Surgery (Cardiothoracic Vascular Surgery); CONSULT PHYSICIAN Internal Medicine Interventional Cardiology; FAMILY PHYSICIAN Family Medicine
PROC: 02RF38Z Replacement of Aortic Valve with Zooplastic Tissue, Percutaneous Approach (ICD-10-PCS; 2023-09-16)
DX: I35.0 Nonrheumatic aortic (valve) stenosis (principal); Z00.6 Encounter for examination for normal comparison and control in clinical research program; I50.33 Acute on chronic diastolic (congestive) heart failure; I11.0 Hypertensive heart disease with heart failure; E78.5 Hyperlipidemia, unspecified; I65.29 Occlusion and stenosis of unspecified carotid artery; I45.10 Unspecified right bundle-branch block; E78.00 Pure hypercholesterolemia, unspecified; G47.33 Obstructive sleep apnea (adult) (pediatric); Z79.82 Long term (current) use of aspirin
CPT/HCPCS: 93308; 33361; 36415; 71045; 71046; 74174; 75572; 76937; 80048; 80053; 81003; 82248; 83036; 83880; 85025; 85027; 85610; 85730; 86850; 86900; 86901; 87070; 93005; 93306; 93321; 93325; C1760; C1769; C1894; Q9967

== ENCOUNTER 2023-09-20 14:41 | Emergency (ER) | payer MEDICARE, OTHER, SELFPAY ==
[2023-09-20 14:46] VITALS: BP 145/82
[2023-09-20 16:29] VITALS: BP 144/76
[2023-09-20 17:33] VITALS: BP 136/71
[2023-09-20 17:42] LABS: % Basophils 0.7 % (0-2); % Eosinophils 3.4 % (0-6); % Immature Granulocytes 0.3 % (0-0.5); % Lymphocytes 22.7 % (20.5-51.1); % Monocytes 12.9 % (1.7-9.3); Absolute Eosinophils 0.2 10^3/uL (0-0.7); Absolute Lymphocytes 1.3 10^3/uL (1.2-3.4); Absolute Monocytes 0.8 10^3/uL (0.1-0.6); Absolute Neutrophils 3.5 10^3/uL (1.4-6.5); Hematocrit 35.2 % (39.0-52.0); Hemoglobin 12.1 g/dL (13.0-18.0); Mean Corp Hgb Conc. 34.4 g/dL (33.0-37.0); Mean Corpuscular Hgb 31.3 pg (27.0-31.0); Nucleated Red Blood Cells % 0 % (-); Platelet Count 123 10^3/uL (130-400); Red Blood Cell Count 3.87 10^6/uL (4.70-6.10); Red Cell Dist. Width 11.9 % (11.5-14.5); White Blood Cell Count 5.9 10^3/uL (4.8-10.8)
[2023-09-20 17:54] LABS: Carbon Dioxide 31 mmol/L (22-30); Chloride 100 mmol/L (98-107); Potassium 4.3 mmol/L (3.5-5.1); Sodium 136 mmol/L (135-145); eGFR > 60.00
[2023-09-20 18:02] LABS: Blood Urea Nitrogen 23 mg/dl (9-20); Glucose 99 mg/dl (70-99)
--- NOTE | 2023-09-20 19:12 | ED.GENMED ---
History of Present Illness
General
Chief Complaint: Visual Problem
Source: patient
Exam Limitations: none
Time Seen by Provider: 09/20/23 16:27
Travel History
Have you had any contact with someone who has COVID-19?: No
Do you have any symptoms of coronavirus? Fever > 100 degrees, chills, cough, shortness of breath, sore throat, loss of taste or smell, muscle aches, or headache?: No
History of Present Illness
History of Present Illness:
78-year-old male with history of lateral peripheral color changes to his vision. Started immediately after his TAVR last week. No headache other visual issues blind spots neurologic issues etc. No unusual chest pain or shortness of breath
Past History
Past History
ED Past Medical History: HTN, Hypercholesterolemia and Valvular disease
ED Past Surgical History: Cardiac (TAVR ) and Orthopedic
Review of Systems
Review of Systems
All Other Systems: Not applicable
Constitutional: Denies fever
Neurological: Denies dizzy, headache, weakness or numbness
Phy Exam
Physical Exam
Physical Exam:
GENERAL: Alert and oriented in no apparent distress
EYE: Orbits normal. Extraocular muscles intact no carotid bruit
NECK: Supple, no significant adenopathy.
ENT: Pharynx without erythema
CARDIAC: Regular rate and rhythm without any obvious murmurs.
LUNGS: Clear breath sounds,normal
ABDOMEN: Soft, without focal tenderness or distention
NEUROLOGICAL: Alert and oriented , grossly non-focal
SKIN: Warm and dry, no rash or lesion, no discoloration, skin intact.
MUSCULOSKELETAL: No edema,no deformity.Good color
PSYCH: Normal and appropriate interaction.
Course
Orders/Labs/Results
Orders:
Orders
09/20/23 16:42
Cardiac Monitoring- Treatment ONCE
IV Insert/Care/Rem.- Treatment PRN
Pulse Ox/cont/shift [RESP] Stat
Quantity: 1
09/20/23 16:43
Electrocardiogram (*1) Stat
Reason for Study: Other
Other Reason for Exam: neuro symptoms
EKG- Treatment ONCE
09/20/23 16:44
Echo Follow up Study W Dop Urgent
Reason for Study: RECENT TAVR. VISUAL CHANGES
09/20/23 16:45
CT Head W/o Iv Contrast Urgent
Comment:
Reason For Exam: Recent TAVR are. Visual changes
09/20/23 17:25
Basic Metabolic Panel Urgent
Complete Blood Count/With Diff Urgent
Abnormal Lab Results
09/20/23
17:25
RBC 3.87 L 10^6/uL
(4.70-6.10)
Hgb 12.1 L g/dL
(13.0-18.0)
Hct 35.2 L %
(39.0-52.0)
MCH 31.3 H pg
(27.0-31.0)
Plt Count 123 L 10^3/uL
(130-400)
MPV 11.0 H fL
(7.4-10.4)
Absolute Monos (auto) 0.8 H 10^3/uL
(0.1-0.6)
Monocytes % 12.9 H %
(1.7-9.3)
Carbon Dioxide 31 H mmol/L
(22-30)
BUN 23 H mg/dl
(9-20)
09/20/23 17:25
09/20/23 17:25
Vital Signs
Initial and Last Documented VS:
Initial Vital Signs
Temp Pulse Resp BP Pulse Ox
97.6 F 49 16 145/82 99
09/20/23 14:46 09/20/23 14:46 09/20/23 14:46 09/20/23 14:46 09/20/23 14:46
Last Documented Vital Signs
Temp Pulse Resp BP Pulse Ox
97.6 F 52 18 136/71 99
09/20/23 14:46 09/20/23 17:33 09/20/23 17:33 09/20/23 17:33 09/20/23 17:33
*Radiology
Radiology exam reviewed: radiology read reviewed (Negative)
*Pulse Oximetry
Patient hypoxic: no
*EKG
Interpreted by ED Provider?: Yes
Interpretation: abnormal
Heart Rate: 46
Rate: bradycardiac
Rhythm: sinus
[place]: normal axis
Interval: normal interval
QRS Pattern: right bundle branch block
Ischemia: T-wave inversion
*Critical Care Note
Total Time (30-74mins, 75-104mins- exclusive of procedures): Not Applicable
Update Note
Update Note:
Workup unremarkable. Minimally low platelets. CT head negative. Echocardiogram normal. Workup was discussed with neurology and with cardiovascular surgery .stable for discharge
ED Attending Note
-
Portions of this chart may have been created with voice recognition software.� Occasional wrong word or��sound alike� substitutions may have occurred due to the inherent limitations of voice recognition software.
Discharge Plan
Departure
Patient Disposition: Home (Routine Discharge)
Date of Disposition: 09/20/23
Time of Disposition: 19:13
Patient with high blood pressure during this ER visit?: Yes
Discharge Problem:
Visual changes, Recent TAVR , Minimal thrombocytopenia
Instructions: BLOOD PRESSURE
Prescriptions:
No Action
losartan 50 MG tablet
100 mg PO DAILY
tamsulosin 0.4 mg Capsule
0.4 mg PO HS
cholecalciferol (vitamin D3) [Vitamin D3] 10 mcg (400 unit) Capsule
50 mcg PO DAILY
melatonin 5 mg Tablet
5 mg PO HS PRN (Reason: as needed)
Centrum Men 8 mg iron- 200 mcg-600 mcg Tablet
1 tab PO DAILY
Prevagen
1 dose PO DAILY
acetaminophen 325 mg Tablet
650 mg PO Q6HPRN PRN (Reason: XIE, mild pain, or fever >101F) Qty: 0 0RF
aspirin 81 mg Tablet,Delayed Release (Dr/Ec)
81 mg PO DAILY Qty: 0 0RF
metoprolol succinate [Toprol XL] 25 mg tablet extended release 24 hr
12.5 mg PO DAILY Qty: 30 0RF
Referrals:
Tonio Sepulveda MD [Family Provider] - Follow up in 2-3 days
Activity Restrictions/Additional Instructions:
Follow-up closely with all of your specialist.
Your platelet count is very minimally decreased. To consider repeating this in a week
Return with any recurrent visual issues eye pain or any other neurologic symptoms
Interventions
Interventions:
*Risk Screen - Suicide Last Done: 09/20/23 16:28
*General Assessment Last Done: 09/20/23 14:46
*Neglect/Abuse Screening Last Done: 09/20/23 16:28
ED- Fall Risk Assessment Last Done: 09/20/23 16:28
*ED COVID-19 Vaccine History Last Done: 09/20/23 14:46
*Nursing Disposition Last Done: 09/20/23 19:26
ED- Neurological Assessment Last Done: 09/20/23 16:28
ED-EENT Assessment Last Done: 09/20/23 16:28
ED Swallowing Screen Last Done: 09/20/23 16:28
Discharge Date and Time
Discharge Date/Time: 09/20/23 19:26
== END 2023-09-20 19:26 | disposition home or self-care (01) ==
LOC: EMR 14:41
PROVIDERS: EMERGENCY PHYSICIAN Emergency Medicine; FAMILY PHYSICIAN Family Medicine
DX: H53.9 Unspecified visual disturbance (principal); D69.6 Thrombocytopenia, unspecified; Z95.2 Presence of prosthetic heart valve; I10 Essential (primary) hypertension
CPT/HCPCS: 99285; 93308; 70450; 80048; 85025; 93005; 93321; 93325

== ENCOUNTER 2023-10-25 15:38 | Outpatient (RCR) | payer MEDICARE, OTHER, SELFPAY | END 2023-10-25 23:59 | disposition home or self-care (01) | LOC: CRHB 15:38 | PROVIDERS: ATTENDING PHYSICIAN Internal Medicine Interventional Cardiology | DX: Z95.2 Presence of prosthetic heart valve (principal) | CPT/HCPCS: G0422; G0423 ==

== ENCOUNTER 2023-11-29 13:39 | Outpatient (RCR) | payer MEDICARE, OTHER, SELFPAY | END 2023-11-29 23:59 | disposition home or self-care (01) | LOC: CRHB 13:39 | PROVIDERS: ATTENDING PHYSICIAN Internal Medicine Cardiovascular Disease | DX: I35.0 Nonrheumatic aortic (valve) stenosis (principal); Z95.2 Presence of prosthetic heart valve | CPT/HCPCS: G0422; G0423 ==

== ENCOUNTER 2023-12-31 14:31 | Outpatient (RCR) | payer MEDICARE, OTHER, SELFPAY | END 2023-12-31 23:59 | disposition home or self-care (01) | LOC: CRHB 14:31 | PROVIDERS: ATTENDING PHYSICIAN Internal Medicine Cardiovascular Disease | DX: I35.0 Nonrheumatic aortic (valve) stenosis (principal); Z95.2 Presence of prosthetic heart valve | CPT/HCPCS: G0422; G0423 ==

== ENCOUNTER 2024-01-28 14:30 | Outpatient (RCR) | payer MEDICARE, OTHER, SELFPAY | END 2024-01-28 23:59 | disposition home or self-care (01) | LOC: CRHB 14:30 | PROVIDERS: ATTENDING PHYSICIAN Internal Medicine Cardiovascular Disease | DX: Z95.4 Presence of other heart-valve replacement (principal) | CPT/HCPCS: G0422; G0423 ==

== ENCOUNTER 2024-02-14 13:57 | Outpatient (RCR) | payer MEDICARE, OTHER, SELFPAY | END 2024-02-14 23:59 | disposition home or self-care (01) | LOC: CRHB 13:57 | PROVIDERS: ATTENDING PHYSICIAN Internal Medicine Cardiovascular Disease; FAMILY PHYSICIAN Family Medicine | DX: Z95.4 Presence of other heart-valve replacement (principal) | CPT/HCPCS: G0422; G0423 ==

== ENCOUNTER 2024-11-11 20:32 | Emergency (ER) | payer MEDICARE, OTHER, SELFPAY ==
[2024-11-11 20:36] VITALS: BP 162/76
--- NOTE | 2024-11-11 21:55 | ED.GENMED ---
History of Present Illness
General
Chief Complaint: Fall
Time Seen by Provider: 11/11/24 21:05
History of Present Illness
History of Present Illness:
79-year-old male presents the emergency department for evaluation of right flank pain after mechanical fall, slipped on the floor and landed on a step directly on the right posterior chest wall. He has pain with deep inspiration, no upper or lower
extremity paresthesias. No neck pain
Past History
Past History
ED Past Medical History: HTN, Hypercholesterolemia and Valvular disease
ED Past Surgical History: Cardiac (TAVR ) and Orthopedic
Review of Systems
Review of Systems
Allergies reviewed?: Yes
All Other Systems: ROS reviewed and negative except as documented in HPI and ROS
Phy Exam
Physical Exam
Physical Exam:
GEN: Well appearing, NAD, WDWN
HEENT: Oral mucosa moist, no scleral icterus
Cardiac: Regular rate
Lung: No respiratory distress, no tachypnea, lungs CTAB
MSK: No gross deformity or injuries. Tenderness elicited to the right posterior chest wall inferior to the scapula with no crepitus or ecchymosis, no palpable deformity, no flail segment
Skin: Good color, no pallor or jaundice, no rashes
Neuro: AO x3, moves all extremities freely
Psych: Calm, cooperative
Course
Orders/Labs/Results
Orders:
Orders
11/11/24 21:24
CR Chest - 2 Views Urgent
Comment:
Reason For Exam: R posterior chest wall injury
11/11/24 21:53
Acetaminophen [Tylenol] 1,000 mg PO NOW STA
Ibuprofen [Motrin] 400 mg PO NOW STA
Lidocaine [Lidocaine 4% Patch] 1 patch TOPICAL NOW STA
Apply Lidocaine patch(s) to:: R flank
Vital Signs
Initial and Last Documented VS:
Initial Vital Signs
Temp Pulse Resp BP Pulse Ox
98.0 F 55 20 162/76 98
11/11/24 20:36 11/11/24 20:36 11/11/24 20:36 11/11/24 20:36 11/11/24 20:36
Last Documented Vital Signs
Temp Pulse Resp BP Pulse Ox
98.0 F 55 20 162/76 98
11/11/24 20:36 11/11/24 20:36 11/11/24 20:36 11/11/24 20:36 11/11/24 20:36
MDM/Problems Addressed
MDM/Problems Addressed:
X-ray obtained to rule out hemopneumothorax and this was reassuring. I do not see any clear evidence for rib fracture on this film. Nevertheless management of her rib fracture versus rib/chest wall contusion is the same, patient is comfortable at
this time, discussed supportive care
*Critical Care Note
Total Time (30-74mins, 75-104mins- exclusive of procedures): Not Applicable
ED Attending Note
-
Portions of this chart may have been created with voice recognition software.� Occasional wrong word or��sound alike� substitutions may have occurred due to the inherent limitations of voice recognition software.
Discharge Plan
Departure
Patient Disposition: Home (Routine Discharge)
Date of Disposition: 11/11/24
Time of Disposition: 21:56
Patient with high blood pressure during this ER visit?: No
Discharge Problem:
Contusion of rib
Instructions: Rib fracture or bruised rib - ED discharge instructions
Prescriptions:
No Action
losartan 50 MG tablet
100 mg PO DAILY
tamsulosin 0.4 mg Capsule
0.4 mg PO HS
cholecalciferol (vitamin D3) [Vitamin D3] 10 mcg (400 unit) Capsule
50 mcg PO DAILY
melatonin 5 mg Tablet
5 mg PO HS PRN (Reason: as needed)
Centrum Men 8 mg iron- 200 mcg-600 mcg Tablet
1 tab PO DAILY
Prevagen
1 dose PO DAILY
acetaminophen 325 mg Tablet
650 mg PO Q6HPRN PRN (Reason: XIE, mild pain, or fever >101F) Qty: 0 0RF
aspirin 81 mg Tablet,Delayed Release (Dr/Ec)
81 mg PO DAILY Qty: 0 0RF
metoprolol succinate [Toprol XL] 25 mg tablet extended release 24 hr
12.5 mg PO DAILY Qty: 30 0RF
Referrals:
Tonio Sepulveda MD [Family Provider] -
Activity Restrictions/Additional Instructions:
Tylenol and Ibuprofen every 6-8 hours
OTC lidocaine patches once daily
Interventions
Interventions:
*Risk Screen - Suicide Last Done: 11/11/24 20:36
*General Assessment Last Done: 11/11/24 20:36
*Neglect/Abuse Screening Last Done: 11/11/24 20:36
*ED- Fall Risk Assessment Last Done: 11/11/24 20:36
*ED COVID-19 Vaccine History Last Done: 11/11/24 20:36
*Nursing Disposition Last Done: 11/11/24 22:28
ED-Musculoskeletal Assessment Last Done: 11/11/24 21:00
ED- Neurological Assessment Last Done: 11/11/24 21:00
ED-Skin Assessment Last Done: 11/11/24 21:00
Discharge Date and Time
Discharge Date/Time: 11/11/24 22:34
Print Language: MOROCCAN
[2024-11-11] MEDS: TYLENOL 1000 MG PO (22:09)
[2024-11-11] MEDS: MOTRIN 400 MG PO (22:09)
[2024-11-11] MEDS: LIDOCAINE 4% PATCH 1 PATCH TOPICAL (22:10)
== END 2024-11-11 22:34 | disposition home or self-care (01) ==
LOC: EMR 20:32
PROVIDERS: EMERGENCY PHYSICIAN Emergency Medicine; FAMILY PHYSICIAN Family Medicine
DX: S20.211A Contusion of right front wall of thorax, initial encounter (principal); W01.0XXA Fall on same level from slipping, tripping and stumbling without subsequent striking against object, initial encounter; I10 Essential (primary) hypertension; E78.00 Pure hypercholesterolemia, unspecified
CPT/HCPCS: 99283; 71046

== ENCOUNTER 2025-06-02 23:05 | Inpatient (IN) | payer MEDICARE, OTHER, SELFPAY ==
[2025-06-02] VITALS (10 sets, daily range): BP systolic 93–119; BP diastolic 69–91; BMI 26.6
[2025-06-02 16:52] LABS: Hematocrit 39.7 % (39.0-52.0); Hemoglobin 13.7 g/dL (13.0-18.0); Mean Corp Hgb Conc. 34.5 g/dL (33.0-37.0); Mean Corpuscular Volume 89.4 fL (80.0-94.0); Nucleated Red Blood Cells % 0 % (-); Platelet Count 198 10^3/uL (130-400); Red Cell Dist. Width 12.2 % (11.5-14.5)
[2025-06-02 17:00] LABS: ALT (SGPT) 19 U/L (0-50); AST (SGOT) 29 U/L (17-59); Albumin 4.1 g/dl (3.5-5.0); Alkaline Phosphatase 57 U/L (38-126); Blood Urea Nitrogen 30 mg/dl (9-20); Calcium 8.9 mg/dl (8.4-10.2); Carbon Dioxide 27 mmol/L (22-30); Chloride 104 mmol/L (98-107); Estimated Creatinine Clearance 55 ml/min; Glucose 133 mg/dl (70-99); Potassium 4.4 mmol/L (3.5-5.1); Sodium 136 mmol/L (135-145); Total Protein 6.6 g/dl (6.3-8.2); eGFR > 60.00
[2025-06-02 17:14] LABS: Troponin I 0.324 ng/ml
--- NOTE | 2025-06-02 17:33 | ED.GENMED ---
History of Present Illness
General
Chief Complaint: Cardiac Symptoms
Source: patient and spouse
Exam Limitations: none
Time Seen by Provider: 06/02/25 17:05
Nursing documentation reviewed up to this point in time: agreed with
History of Present Illness
History of Present Illness:
Note:
CHIEF COMPLAINT(S)
- Chest pressure
- Speech difficulties
- Visual disturbances
HISTORY OF PRESENT ILLNESS
The patient is an 80-year-old male who presented to the emergency room after experiencing significant symptoms the day before. Initially noticed while in [place], the patient reported sudden pressure in the chest, accompanied by headaches and
blurred peripheral vision. The vision issue manifested as seeing colors and different things in the periphery on both sides. During a drive back from [place], while on the phone with his son, the patient experienced difficulty in speech, which was
described as intelligibility issues in communication when trying to express his thoughts. This attempt and failure to articulate continued while speaking to his during the travel. The episode was noted around 2 PM and resolved after
approximately an hour, as confirmed upon waking from a subsequent nap. He was seen at an urgent care facility in [place] and commenced on Apixaban (Eliquis) and told to increase his Metoprolol dosage to a full pill.
The patient has a history of aortic valve replacement two years ago, the details of which include the installation of a prosthetic valve conducted by a specific bit and shank department supervisor, although the type of valve was not clearly stated by the patient. Symptoms
consistent with a potential transient ischemic attack (TIA) or stroke, along with atrial fibrillation, were concerns upon evaluation, necessitating further diagnostic workup.
PAST MEDICAL AND SURGICAL HISTORY
- Aortic valve replacement surgery two years prior.
CHRONIC MEDICAL CONDITIONS SIGNIFICANTLY AFFECTING CARE
- Atrial fibrillation
SOCIAL DETERMINANTS AFFECTING HEALTH
The patient reported alcohol consumption as a factor potentially exacerbating atrial fibrillation episodes, described in the context of recent social gatherings and celebrations.
MEDICATIONS
- Apixaban (Eliquis): Started last night, with dosages taken at bedtime and this morning.
- Metoprolol (increased to a full pill as per recent instructions).
- Aspirin, 81 mg.
REVIEW OF SYSTEMS
- Cardiovascular: Reports chest pressure.
- Neurological: Experiences speech difficulties, visual disturbances described as altered peripheral vision perception on both sides.
PHYSICAL EXAM
General: Alert, no acute distress.
Skin: Warm, dry.
Head: Normocephalic, atraumatic.
Neck: Supple, trachea midline.
Eye Ears, nose, mouth, and throat: Oral mucosa moist.
Cardiovascular: Normal peripheral perfusion, no edema. tachycardia, irregular rhythm
Respiratory: Non-labored respirations.
Gastrointestinal: Abdomen non-distended.
Back: Normal range of motion, normal alignment.
Musculoskeletal: Normal range of motion, normal strength.
Neurological: Alert and oriented to person, place, time, and situation. No focal neurological deficit observed.
Psychiatric: Cooperative, appropriate mood & affect.
PROBLEM LIST
Acute Problems:
- Chest pressure
- Speech difficulties
- Visual disturbances
- Elevated troponin levels
Chronic Problems:
- Atrial fibrillation
PLAN
- Admission to the hospital for observation and further workup.
- CT scan of the head and neck to evaluate potential stroke or TIA.
- Continuous cardiac monitoring to assess atrial fibrillation and elevated heart rate.
- Consult with cardiology, despite primary bit and shank department supervisor not being available in this facility.
- Monitor vital signs closely, particularly blood pressure.
- Continue Apixaban and Metoprolol as prescribed.
- Educate patient on potential triggers of atrial fibrillation, including alcohol.
DIFFERENTIAL DIAGNOSIS
The Differential Diagnosis includes, in no particular order and is not limited to:
- Transient ischemic attack (TIA)
- Stroke
- Acute coronary syndrome
- Visual migraine
- Vestibular disorders
- Hypertensive crisis
- Alcohol-induced cardiac arrhythmia
- Anemia-induced cardiac stress
- Cardiac ischemia due to aortic valve dysfunction
- Medication-related side effects and interactions
EKG
My independent EKG interpretation is:
- Rhythm: Atrial fibrillation
- Heart Rate: 127 bpm
- Notable Finding: Right bundle branch block
- Additional Observations: [Unclear transcriptions such as 'vertebral response', 'Kenny of abnormality', and 'pure leaves' seem to be misinterpretations. If clarification is provided, it may help in accurately representing these statements.]
CARE-UPDATE
06/03/25 - 01:37
CT head and neck revealed no acute findings. Initiating treatment with diltiazem. Dr. Navarrete from [facility] consulted; recommends continuing Eliquis as per cardiologys advice.
Disposition:
SUMMARY OF ENCOUNTER
The patient, an 80-year-old male with a history of aortic valve replacement and atrial fibrillation, was seen in the emergency department following an acute episode characterized by chest pressure, speech difficulties, and visual disturbances. These
symptoms were consistent with a potential transient ischemic attack (TIA) or stroke. Management included imaging and cardiac monitoring. The patient had initiated Apixaban (Eliquis) following an urgent care visit and had increased his dose of
Metoprolol upon advice. In the emergency department, attention was given to the elevated troponin levels without acute findings on CT imaging, indicative of possible non-ischemic etiology.
DISPOSITION
Admit
ASSESSMENT
Acute atrial fibrillation with rapid ventricular response, transient ischemic attack, elevated troponin levels of unclear etiology.
PLAN
- Admission to the hospital for observation and further workup.
- CT scan of the head and neck to evaluate potential stroke or TIA.
- Continuous cardiac monitoring to assess atrial fibrillation and elevated heart rate.
- Consult with cardiology for further management guidance.
- Monitor vital signs closely, particularly blood pressure.
- Continue Apixaban and Metoprolol as prescribed.
- Educate patient on potential triggers for atrial fibrillation, such as alcohol consumption.
INDEPENDENT REVIEW OF LABS AND INTERPRETATION OF TESTS
My independent review of the EKG shows atrial fibrillation with a heart rate of 127 bpm and right bundle branch block noted.
My independent review of troponin levels indicates an elevation, though without clear ischemic correlation.
MEDICATION RECONCILIATION
Medications at the time of encounter include Apixaban and increased dose of Metoprolol. Diltiazem was initiated for rate control.
MEDICAL DECISION MAKING
- Number and Complexity of Problems Addressed: Chronic conditions affecting care include atrial fibrillation and prior aortic valve replacement. Differential diagnosis includes transient ischemic attack, stroke, acute coronary syndrome, visual
migraine, vestibular disorders, hypertensive crisis, alcohol-induced cardiac arrhythmia, anemia-induced cardiac stress, cardiac ischemia due to aortic valve dysfunction, and medication-related side effects and interactions.
- Data:
- Category 1: Non-emergency department records reviewed show the patients outpatient visits and current medication history.
- Category 2: My independent interpretation of the EKG, and CT head and neck, revealed no acute findings.
- Category 3: Discussion of management with Dr. Navarrete from [facility] led to recommendations to continue Eliquis as per cardiologys advice.
- Risk: Pharmacological management with anticoagulation (Apixaban) and rate control (Diltiazem) presented risks necessitating hospitalization for close monitoring and further investigation of elevated troponin.
Past History
Past History
ED Past Medical History: HTN, Hypercholesterolemia and Valvular disease
ED Past Surgical History: Cardiac (TAVR ) and Orthopedic
Phy Exam
Physical Exam
Physical Exam:
.
Course
Orders/Labs/Results
Orders:
Orders
06/02/25 16:10
Electrocardiogram (*1) Urgent
Reason for Study: Atrial Fibrillation
EKG- Treatment ONCE
06/02/25 16:35
Complete Blood Count/With Diff Urgent
Comprehensive Metabolic Panel Urgent
Troponin I Urgent
06/02/25 17:34
IV Insert/Care/Rem.- Treatment PRN
06/02/25 17:35
CT Head & Neck Angio W/wo IV Urgent
Comment:
Reason For Exam: expressive aphasia, now resolved, neck pain
06/02/25 22:15
Diltiazem 125 mg/125 ml Nss [Cardizem] 125 mg in 125 ml IV PER PROTOCOL
Initial dose in mg/hr, then titrate:: 5
Titrate to keep:: Heart rate 80-100 bpm
Titrate by mg/hr:: 5 mg/hr
Frequency of titrations (minutes):: 15
Maximum dose in mg/hr:: 15
06/02/25 22:33
Admit/Transfer Patient As Directed
Co-Sign Provider:
Level of Care: Inpatient admission
Assign to:: IVU
Physician / Group: allie
Diagnosis: tia
Reason for Hospitalization: tia
atrial fib with RVR
chest pain
Expected length of stay greater than two midnights?: Yes
ELOS- Estimated Length of Stay in days: 3
I certify the patient meets the requirements for IP care: Yes
06/02/25 22:34
PRN Pain Medication Management As Directed
May give lesser potent ordered pain med per pt: Yes
preference::
Protocol:: Medication orders for pain may be administered in a
manner that supports deferring to patient preference
when the pt is:
- Requesting an ordered lesser potent pain medication.
Least to most potent pain medications are defined
as: acetaminophen < NSAID < tramadol < opioids
(morphine, oxycodone, hydromorphone).
- Requesting a lesser dose of the same medication IF
ORDERED.
- Requesting a less intrusive route of administration
if both routes are prescribed by the provider (PO <
IV).
06/02/25 22:35
Code Status As Directed
Resuscitation Status: Full Code
06/02/25 22:55
Apixaban [Eliquis] 5 mg PO NOW STA
06/03/25 01:17
Echo 2D MMode Color/Doppler Routine
Reason for Study: chest pain
CARDIOLOGY CONSULT Routine
Consulting Provider: Raza Burrell
Was physician already notified: No
Reason for consult: atrial fib with RVR
Case Management Consult ONCE
Case Management Consult: Discharge Planning
Comment: stroke/tia
Consult Notification Routine
Specialty to Notify: Cardiology
Consult Notification Routine
Specialty to Notify: Neurology
DIETARY IP CONSULT Routine
Reason for Consult: stroke/TIA
NEUROLOGY CONSULT Urgent
Consulting Provider: Curry Eaton
Was physician already notified: No
Reason for consult: TIA
Chinese Language Professor Urgent
Glycohemoglobin (HgbA1c) Routine
MR Brain Without Contrast Routine
Comment:
Reason For Exam: stroke/TIA
Recent pill cam endoscopy?: No
Activity As Directed
Activity Level: As Tolerated
INT (Intravenous Needle Therapy) As Directed
Comment: maintain peripheral IV access
Intake/ Output As Directed
Frequency: Per unit guidelines
NIH Stroke Scale As Directed
Directions: Per protocol
Comment: every shift and with any change in condition or mental status
Neurological Checks As Directed
Frequency: q4h
Additional Instructions:: q4h x 24h upon admission to the floor, then qshift & with any change in condition
and mental status
Patient Education As Directed
Type: Stroke education packet
Comment: provide to patient and family
Pneumatic Compression Sleeves As Directed
Type: Thigh high
Vital Signs As Directed
Frequency: Per unit guidelines
Call for:: BP greater than 180/105 mmHg or less than 100/60 mmHg
Vital Signs As Directed
Frequency: q4h
Weight As Directed
Frequency: Daily
Ot Eval And Treat Routine
Pt Eval And Treat Routine
Activity Level: As Tolerated
Speech Therapy Eval & Treat Routine
DX Deep Vein Thrombosis Video Routine
06/03/25 01:17
Electrocardiogram (*1) Q3H
Reason for Study: Chest Pain
Comment: at admission and Q3H for total of 3, to be done with each troponin
Acetaminophen [Tylenol/Feverall] 650 mg RECTAL Q4HPRN PRN
Acetaminophen [Tylenol] 650 mg PO Q4HPRN PRN
Diltiazem 125 mg/125 ml Nss [Cardizem] 125 mg in 125 ml IV PER PROTOCOL
Currently infusing. Continue current dose and titrate:: Yes
Titrate to keep:: Heart rate 80-100 bpm
Titrate by mg/hr:: 5 mg/hr
Frequency of titrations (minutes):: 15
Maximum dose in mg/hr:: 15
06/03/25 01:27
Troponin I Q3H
Comment: at admit & Q3H for 3 total including ED draws, obtain ECG with each level
06/03/25 04:17
Electrocardiogram (*1) Q3H
Reason for Study: Chest Pain
Comment: at admission and Q3H for total of 3, to be done with each troponin
Troponin I Q3H
Comment: at admit & Q3H for 3 total including ED draws, obtain ECG with each level
06/03/25 Breakfast
Cholesterol Lowering
Cholesterol Lowering: Sodium, 2 Gram
Cardiovascular Evaluation IN AM
06/03/25 07:17
Electrocardiogram (*1) Q3H
Reason for Study: Chest Pain
Comment: at admission and Q3H for total of 3, to be done with each troponin
Troponin I Q3H
Comment: at admit & Q3H for 3 total including ED draws, obtain ECG with each level
06/03/25 08:00
Apixaban [Eliquis] 5 mg PO BID
Aspirin Low Dose EC [Aspir Low (Enteric Coated)] 81 mg PO DAILY
Losartan [Cozaar] 100 mg PO DAILY
Metoprolol Xl [Toprol Xl] 25 mg PO DAILY
Pantoprazole [Protonix] 40 mg PO DAILY
Pravastatin Sodium [Pravachol] 20 mg PO DAILY
06/03/25 22:00
Tamsulosin [Flomax] 0.4 mg PO HS
Abnormal Lab Results
06/02/25
16:35
RBC 4.44 L 10^6/uL
(4.70-6.10)
MPV 11.8 H fL
(7.4-10.4)
Absolute Monos (auto) 0.8 H 10^3/uL
(0.1-0.6)
Lymphocytes % 17.7 L %
(20.5-51.1)
Monocytes % 11.2 H %
(1.7-9.3)
BUN 30 H mg/dl
(9-20)
Glucose 133 H mg/dl
(70-99)
Troponin I 0.324 H* ng/ml
06/02/25 16:35
06/02/25 16:35
Vital Signs
Initial and Last Documented VS:
Initial Vital Signs
Temp Pulse Resp BP Pulse Ox
98.5 F 127 16 100/69 98
06/02/25 16:18 06/02/25 16:18 06/02/25 16:18 06/02/25 16:18 06/02/25 16:18
Last Documented Vital Signs
Temp Pulse Resp BP Pulse Ox
97.5 F 74 20 89/71 99
06/03/25 01:02 EDT 06/03/25 00:45 06/03/25 01:02 EDT 06/03/25 00:38 06/03/25 01:02 EDT
*Pulse Oximetry
SaO2: 94
Oxygen Mode of Delivery: Room air
Patient hypoxic: no
*Critical Care Note
Total Time (30-74mins, 75-104mins- exclusive of procedures): 30
comment:
Critical care statement: A total of 30 minutes of critical care time was provided for this patient. This includes management of unstable vital signs, evaluation of the patient at bedside, reviewing the patient's pertinent medical records, discussion
with consultants, review of old EKGs and review of pertinent medical records. This time with separate from time utilized to perform the aforementioned documented procedures
ED Attending Note
-
Portions of this chart may have been created with voice recognition software.� Occasional wrong word or��sound alike� substitutions may have occurred due to the inherent limitations of voice recognition software.
Discharge Plan
Departure
Patient Disposition: Admit
Date of Disposition: 06/02/25
Time of Disposition: 22:04
Admit to: IVU
Presentation/result/management discussed w/ accepting MD/DO: Hospitalist
Patient with high blood pressure during this ER visit?: No
Condition: Fair
Discharge Problem:
Atrial fibrillation with rapid ventricular response, TIA (transient ischemic attack)
Interventions
Interventions:
*Risk Screen - Suicide Last Done: 06/02/25 16:18
*General Assessment Last Done: 06/02/25 16:18
*Neglect/Abuse Screening Last Done: 06/02/25 16:18
*ED- Fall Risk Assessment Last Done: 06/02/25 16:18
*ED COVID-19 Vaccine History Last Done: 06/03/25 01:10
*ED Influenza Vaccine History Last Done: 06/02/25 16:18
ED- Pulmonary Assessment Last Done: 06/02/25 16:29
ED- Cardiac Assessment Last Done: 06/02/25 16:29
--- NOTE | 2025-06-02 22:09 | HPS.HSE ---
Addendum entered and electronically signed by Vernon Johnson DO 06/02/25 23:28:
Patient seen and examined independently. Agree with findings and plan as set forth by VITA Pereira.
Patient is an 80y M with PMH significant for hypertension, s/p TAVR and BPH who presents to ED complaining of chest pain, dyspnea and speech abnormality. Patient developed substernal chest pain late evening while in [place] visiting
family. He was drinking some alcohol that evening prior to onset of symptoms. He went to bed and awoke with persistent though less severe symptoms. He noted increase in discomfort and sense of dyspnea with climbing stairs or other exertion.
Patient was sen at Urgent Care on Wednesday and noted to be in A-Fib with RVR. He was started on Eliquis and advised to increase his metoprolol dose.
On the way home to [place] today, patient had an episode of expressive aphasia lasting about 15 minutes. He describes knowing what he wanted to say but speaking 'nonsense'.
He went to sleep shortly after this episode and - when he awoke - his speech was normal.
In the ED, patient continues to report some mild chest discomfort and neck discomfort. No dyspnea at rest.
Patient has clear speech at present and no focal numbness, weakness, ataxia.
Ass:
Atrial Fibrillation with Rapid Ventricular Response (new)
Expressive Aphasia - CVA / TIA
Abnormal Troponin
Aortic Stenosis s/p TAVR
Benign Hypertension
BPH
Plan:
Admit for further evaluation and treatment.
Continue IV Cardizem and titrate as needed for rate control.
Continue Eliquis including dose tonight to avoid any missed doses.
Cardiology evaluation for additional recommendations.
Troponin elevation likely due to tachyarrhythmia - but with chest discomfort need to rule out ACS.
Follow serial troponin and monitor for any new / worsening symptoms.
Follow neurologic exam for changes.
CT CTA in the ED were unremarkable.
Check MRI in AM. Echo. Neurology evaluation.
Original Note:
Family Physician
-
Family Physician: Tonio Sepulveda
Chief Complaint
-
chest pressure
History of Present Illness
80-year-old with past medical history for hypertension, aortic stenosis status post TAVR, hyperlipidemia, BPH presented to us with midsternum chest pressure since night. they were at [place] visiting his son. Patient stated going to bed
with chest pressure and waking up with chest pressure and neck pain patient stated chest pressure worse with exertion. Patient also complained of short of breath which is worse with exertion. Patient complain of dizziness at times. He complained
of headache. Patient was evaluated at the urgent care in [place]. Patient was noted in A-fib. Patient was started on Eliquis as well as his metoprolol was increased. Today on his way back home, his son called him on the phone. But he was not
able to express his thoughts and his speech noted slurred. his was driving the car and he slept until he got here. upon arrival, his speech was fine. Patient denied any fever, chills, cough, congestion. Patient denied any abdominal pain,
nausea, vomiting or diarrhea. Patient denied dysuria, hematuria..
Upon arrival patient was noted in A-fib with RVR. Patient initiated on Cardizem drip. Admitting for further management.
Medical History
Past Medical History
Past Medical History: Reports Other
Additional Past Medical History:
HTN, HLD, GAURANG, carotid artery stenosis, colon polyp,
Past Surgical History: Reports Other
Additional Past Surgical History:
cataracts surgery
MOHS surgery,TAVR
Social History
Tobacco: Non-smoker
Alcohol: Occasional
Drug: None
Personal:
Living: With Family
Family History
Family History: Not pertinent
Allergies / Home Medications
Allergies reflects when Allergies were last updated in [facility].
Home Medications with original date entered in [facility]
Allergy/Medication List:
Allergies
Allergy/AdvReac Type Severity Reaction Status Date / Time
No Known Allergies Allergy Verified 09/20/23 14:50
Home Medications
multivit,Ca,min-iron 8 mg-folic acid 200 mcg-lycopene 600 mcg tablet (Centrum Men) 1 tab PO DAILY Supplement 09/08/23
tamsulosin 0.4 mg capsule 0.4 mg PO HS Urinary Issue 09/08/23
aspirin 81 mg tablet,delayed release 81 mg PO DAILY Blood clot prevention/tx #0 tabs 09/17/23
Lactobac no.2-Bifidobac no.1-S. thermo 112.5 billion cell capsule (Visbiome) 1 cap PO DAILY 06/02/25
apixaban 5 mg tablet (Eliquis) 5 mg PO BID 06/02/25
cholecalciferol (vitamin D3) 50 mcg (2,000 unit) capsule 50 mcg PO DAILY 06/02/25
coenzyme Q10 100 mg tablet 100 mg PO DAILY 06/02/25
losartan 100 mg tablet 100 mg PO DAILY 06/02/25
metoprolol succinate 25 mg tablet,extended release 24 hr (Toprol XL) 25 mg PO DAILY 06/02/25
pravastatin 20 mg tablet 20 mg PO DAILY 06/02/25
Review of Systems
-
Constitutional: Reports No Symptoms
EENT: Reports No Symptoms
Respiratory: Reports Trouble Breathing
Cardiac: Reports Chest Pain
Abdomen/GI: Reports No Symptoms
: Reports No Symptoms
Musculoskeletal: Reports No Symptoms
Skin: Reports No Symptoms
Neurological: Reports Dizzy, Headache and Other (Expressive aphasia)
Endocrine: Reports No Symptoms
Hematologic/Lymphatic: Reports No Symptoms
Psych: Reports No Symptoms
Physical Exam
Vital Signs
Vital Signs
Temp Pulse Resp BP Pulse Ox
98.5 F 130 11 119/75 98
06/02/25 16:18 06/02/25 21:00 06/02/25 21:00 06/02/25 21:00 06/02/25 21:00
Physical Exam
General: Well Developed, Well Nourished and No Apparent Distress
HEENT: NormoCephalic, Moist mucous membranes and Atraumatic
Respiratory: Clear
Cardiac: Irregular Rhythm and Tachycardia; No Murmur or Rub
GI: Soft, Non Tender, Non Distended and Normal Bowel Sounds; No Organomegaly
Rectal: Deferred by Provider
Musculoskeletal: No Clubbing, No Cyanosis and No Edema
Skin: No Rash
Neuro: AO x 3 and Nonfocal/grossly intact
Psych: Calm
Laboratory Results
-
06/02/25 16:35
06/02/25 16:35
Laboratory Results
Total Bilirubin 0.6 mg/dl (0.2-1.3) 06/02/25 16:35
AST 29 U/L (17-59) 06/02/25 16:35
ALT 19 U/L (0-50) 06/02/25 16:35
Alkaline Phosphatase 57 U/L (38-126) 06/02/25 16:35
Troponin I 0.324 ng/ml H* 06/02/25 16:35
Data Reviewed
-
CT Scan: Report Reviewed by me
Lab Data: Labs Reviewed by me
Impression/Plan
-
#expressive aphasia concern for TIA
-head neck CTA negative
-obtain MRI
-obtain a1c, lipid profile
-statin, asa continued
- Neurology consulted
#rapid atrial fib
-EKG with atrial fib with RVR
-on Cardizem drip
-eliquis continued
-obtain echo
#elevated trop r/o NSTEMI
-trop 0.384
- Continue to trend troponin and EKG
- Cardiology consulted
#hxt of
-s/p TAVR
# HTN/HLD
-Losartan, metoprolol continued
- Statin continued
-BPH
- Tamsulosin continued
#DVT prophylaxis
- On Eliquis
#CODE status
-full code
[2025-06-02] MEDS: CARDIZEM 125 IV (22:10)
[2025-06-02] MEDS: ELIQUIS 5 MG PO (23:05)
[2025-06-03] VITALS (19 sets, daily range): BP systolic 89–126; BP diastolic 54–95; BMI 26.4
[2025-06-03] MEDS: TYLENOL 650 MG PO (01:03)
[2025-06-03 01:10] LABS: Troponin I 0.418 ng/ml
[2025-06-03 01:11] LABS: HDL Cholesterol 53 mg/dl; LDL Cholesterol, Calculated 87 mg/dl; Very Low Density Lipoprotein 20 mg/dl (0-30)
--- NOTE | 2025-06-03 01:41 | PTCARENOTE ---
Pt. rec'd into room 2255 from ED AAOx3, VSS, A-fib rate 60's-80's on the monitor, SBP 90's-low 100's. Cardizem gtt decreased from 10mg/hr to 5 mg/hr as per protocol. Pt. ambulatory with steady gait, neuro check WNL. NIH swallow screening and
stroke scale completed with no dysphagia assessed, NIH score 0. No complaints of chest pain/discomfort, complaining of neck pain for which Tylenol given. EKG completed and troponin drawn and sent. Admission completed, stroke and A-fib booklets
given. Clarified with hospitalist VITA Plasencia that pt. NPO pending possible testing / procedures in AM (not due to any suspected dysphagia). Pt. oriented to room and plan of care, understanding verbalized. Currently resting quietly.
[2025-06-03 05:25] LABS: Troponin I 0.957 ng/ml
[2025-06-03] MEDS: PRAVACHOL 20 MG PO (07:51)
[2025-06-03] MEDS: ELIQUIS 5 MG PO ×2 (07:52→19:39)
[2025-06-03] MEDS: PROTONIX 40 MG PO (07:52)
[2025-06-03] MEDS: ASPIR LOW (ENTERIC COATED) 81 MG PO (07:52)
[2025-06-03] MEDS: TOPROL XL 25 MG PO (07:52)
--- NOTE | 2025-06-03 07:59 | CON.CAR ---
Consultation
Consultation Request
Date/Time Consultation Requested: June 03, 2025
Date/Time Consultation Performed: June 03, 2025
Requesting Provider: Hospitalist
Performing Provider: Dr. Rzaa Burrell
Reason for Consultation: CVA
Medical History
-
Chief Complaint: Difficulty with speech.
History of Present Illness:
.
Primary loan approver is Dr. Madi Navarrete
He presents to [facility] emergency department with newly diagnosed atrial fibrillation as well as transient expressive aphasia.
His medical history is significant for severe aortic stenosis, hypertension, hypercholesterolemia, sleep apnea, baseline right bundle branch block, cerebrovascular disease who TAVR yesterday with a 26 mm Franco JUSTINE 3 09/16/24.
Patient developed substernal chest discomfort late evening while in [place] visiting family. He went to bed and awoke with a persistent though less severe chest discomfort. He then noted worsening dyspnea while climbing stairs. He was
seen at an urgent care facility on June 01 and noted to be in atrial fibrillation, also with a rapid ventricular rate. Atrial fibrillation is a new diagnosis for him. He was initiated on Eliquis and advised to increase his metoprolol
dosing. On his way home June 02 he had a transient episode of expressive aphasia lasting approximately 15 minutes. By the time he presented to the emergency department his speech was clear and he had no focal neurologic deficit noted.
ECG #1: Atrial fibrillation with a rapid ventricular rate at 127 bpm, right bundle branch block and nonspecific ST and T wave abnormalities most noted in the inferolateral leads
ECG #2: Atrial fibrillation with a controlled ventricular rate of 97 bpm, right bundle branch block and nonspecific T wave abnormalities most noted in the inferolateral leads
Troponin #1 0.3-4 followed by 0.418 and 0.957
Patient was started on Cardizem infusion for rate control.
Echocardiogram Sep 20 2023 finds normal left ventricular size and function with ejection fraction of 60 to 65%. No wall motion abnormalities. Peak and mean gradients across the Franco CPN TAVR are are at 30 and 16 with trace aortic insufficiency.
There is mild TR.
Coronary angiography September 10, 2023: Mild nonobstructive coronary artery disease
PMH:
TAVR with JUSTINE 3 Franco valve 09/16/2024
Obstructive sleep apnea
Hypertension
Dyslipidemia
Pre-existing RBBB
Carotid artery stenosis
History of facial BCC skin cancer- s/p Mohs
L RTC repair x 2
Cataract extraction
Social History
Tobacco: Former Smoker (Quit in 1972 had smoked half a pack per day for 15 years.)
Alcohol: Occasional
Drug: None
Personal:
Living: With Family
Employment: Retired
Family History
Family History: Reviewed & Not Pertinent
Allergies / Home Medications
Allergy/AdvReac Type Severity Reaction Status Date / Time
No Known Allergies Allergy Verified 09/20/23 14:50
�Medication �Instructions �Recorded �Confirmed �Type
multivit,Ca,min-iron 8 mg-folic 1 tab PO DAILY Supplement 09/08/23 06/02/25 History
acid 200 mcg-lycopene 600 mcg
tablet (Centrum Men)
tamsulosin 0.4 mg capsule 0.4 mg PO HS Urinary Issue 09/08/23 06/02/25 History
aspirin 81 mg tablet,delayed 81 mg PO DAILY Blood clot 09/17/23 06/02/25 Rx
release prevention/tx #0 tabs
Lactobac no.2-Bifidobac no.1-S. 1 cap PO DAILY 06/02/25 06/02/25 History
thermo 112.5 billion cell capsule
(Visbiome)
apixaban 5 mg tablet (Eliquis) 5 mg PO BID 06/02/25 06/02/25 History
cholecalciferol (vitamin D3) 50 50 mcg PO DAILY 06/02/25 06/02/25 History
mcg (2,000 unit) capsule
coenzyme Q10 100 mg tablet 100 mg PO DAILY 06/02/25 06/02/25 History
losartan 100 mg tablet 100 mg PO DAILY 06/02/25 06/02/25 History
metoprolol succinate 25 mg 25 mg PO DAILY 06/02/25 06/02/25 History
tablet,extended release 24 hr
(Toprol XL)
pravastatin 20 mg tablet 20 mg PO DAILY 06/02/25 06/02/25 History
Review of Systems
-
History Source: Patient
All other systems: Negative unless noted
Constitutional: No Symptoms
EENT: No Symptoms
Respiratory: Trouble Breathing (On presentation and now resolved)
Cardiac: Chest Pain (On presentation and now resolved)
Abdomen/GI: No Symptoms
: No Symptoms
Musculoskeletal: No Symptoms
Skin: No Symptoms
Neurological: Other (Expressive aphasia, transient lasted 15 minutes now resolved)
Endocrine: No Symptoms
Hematologic/Lymphatic: No Symptoms
Physical Exam
Vital Signs
Temp Pulse Resp BP Pulse Ox
97.9 F 76 15 114/95 96
06/03/25 07:32 06/03/25 07:52 06/03/25 07:32 06/03/25 07:52 06/03/25 07:32
Lab Results
06/02/25 16:35
06/02/25 16:35
Troponin I 0.957 ng/ml H* D 06/03/25 04:40
Physical Exam
General: Well Developed, Well Nourished and No Apparent Distress
HEENT: Normocephalic, Anicteric and Moist Mucous Membranes
Respiratory: Clear and Non Labored Respirations
Cardiac: S1/S2, Regular Rhythm and Murmur (Grade 1/6 apical holosystolic murmur. No rubs. Normal PMI)
Breast: Deferred by me
GI: Soft, Non Tender and Non Distended
Rectal: Deferred by Provider
Genito-urinary: Costovertebral Angle Tend and No Costovertebral Tender
Musculoskeletal: No Clubbing, No Cyanosis and No Edema
Skin: Warm and Dry
Neuro: Awake, Alert, Oriented, AO x 3 and No Motor Deficits
Psych: Calm
Impression / Plan
-
Primary loan approver is Dr. Madi Navarrete
Impression:
TIA
Newly diagnosed atrial fibrillation
Abnormal troponin
TAVR with JUSTINE 3 Franco valve 09/16/2024
Obstructive sleep apnea
Hypertension
Dyslipidemia
Pre-existing RBBB
Carotid artery stenosis
History of facial BCC skin cancer- s/p Mohs
L RTC repair x 2
Cataract extraction
ECG #1: Atrial fibrillation with a rapid ventricular rate at 127 bpm, right bundle branch block and nonspecific ST and T wave abnormalities most noted in the inferolateral leads
ECG #2: Atrial fibrillation with a controlled ventricular rate of 97 bpm, right bundle branch block and nonspecific T wave abnormalities most noted in the inferolateral leads
Troponin #1 0.3-4 followed by 0.418 and 0.957
Echocardiogram Sep 20 2023 finds normal left ventricular size and function with ejection fraction of 60 to 65%. No wall motion abnormalities. Peak and mean gradients across the Franco CPN TAVR are are at 30 and 16 with trace aortic insufficiency.
There is mild TR.
Coronary angiography September 10, 2023: Mild nonobstructive coronary artery disease
Recommendations:
Transient ischemic attack/CVA
Likely related to atrial fibrillation
At this point cannot exclude involvement of the TAVR valve/valve related thrombus. Check transthoracic echocardiogram to start.
Patient initiated on Eliquis at day of diagnosis (06/01/25) and within 24 hours of symptom onset, continue Eliquis 5 mg twice daily
Neurologic evaluation is underway
Newly diagnosed atrial fibrillation, presenting symptomatic with rapid ventricular rates
Now on Cardizem infusion and rates are better controlled, he is now asymptomatic (no chest discomfort and no shortness of breath).
Maintain Cardizem infusion
I am increasing Toprol-XL from 25 mg daily to 50 mg twice daily starting this morning to try to obtain better rate control
Additionally, we will initiate amiodarone with an eye towards eventual cardioversion.
Amiodarone 400 mg p.o. 3 times daily while hospitalized (up to 5 days max at this dose) then transition to 200 mg twice daily for 30 days, then 200 mg once daily
Long-term rhythm control management will need to consider ablation
Elevated and rising troponin values
No obstructive coronary artery disease from coronary angiography 9 months ago
Likely noninfarct/non-NC related. Likely related to atrial fibrillation with rapid ventricular rate.
Continue to trend ECGs as there is some inferolateral ST and T abnormality
Continue to trend troponins
History of aortic stenosis, now status post TAVR September 2024
He has been doing well, very active and asymptomatic until he developed atrial fibrillation on June 01, 2025.
By exam I do not suspect any significant aortic stenosis or aortic insufficiency
Check transthoracic echocardiogram
Data Reviewed
-
EKG: Tracing Personally Visualized and interpreted
Radiology: Report Reviewed by me
CT Scan: Report Reviewed by me
Medical Tests (Nuc Med, Echo etc): Report Reviewed by me
Labs: Labs Reviewed by me, Discussed with Physician and Discussed with Patient
Old Records: Reviewed
Total Time Spent with Patient (in minutes): 80
--- NOTE | 2025-06-03 08:09 | PTCARENOTE ---
Assumed care at 0700. Patient AO x3, NIH 0. A-fib 70-90's at rest. Cardizem gtt stopped at 0800, PO Toprol given. MRI today. Plan of care reviewed.
--- NOTE | 2025-06-03 08:47 | W.PN.HOSP.TC ---
Today's Communication/Plan
-
Brain MRI
Neurology consult
Speech consult
Hold losartan
Check magnesium
Assessment / Plan
Assessment / Plan
Gen-AAOx3, NAD
HEENT-NC, AT, anicteric, clear oral mm
Neck-supple
CV-irregular, no M, +S1/S2
Lungs-clear B/L
Abd-soft, NT, ND
Ext-no edema
Musculoskeletal-no cyanosis, clubbing
Skin-warm and dry
Neuro-grossly non-focal
Psych-calm, cooperative
TIA -transient speech difficulty characterized by nonsensical words, patient states it lasted for 5 minutes. Currently without any neurologic deficits.
CT brain on admission without acute disease. CTA without significant vascular occlusion. Calcification of vessels noted.
Brain MRI pending. Neurology consult pending.
Patient denies history of TIA or stroke.
Rapid atrial fibrillation -new onset several days ago. Went to urgent care and was started on Eliquis 06/01. Transition off Cardizem drip to oral metoprolol, titrate dose. Cardiology consulted, planning to start amiodarone. Check echocardiogram.
Troponin elevation -no obstructive CAD on prior cardiac catheterization. Suspect acute nonischemic myocardial injury due to rapid atrial fibrillation.
Aortic stenosis -s/p TAVR, 09/16/2023.
Essential hypertension -stable. Blood pressure somewhat low. Hold losartan.
Hyperlipidemia -on pravastatin.
Alcohol use disorder -does not drink daily. States he drinks 4 times a month but when he does drink he tends to have multiple drinks at a time. Last drink was evening. Low risk for alcohol withdrawal but monitor closely.
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
Cataracts
Full code
Anticipated Discharge: > 48 hours
Subjective/Interval History
-
Date of Service: June 03, 2025
Patient seen and examined. No complaints.
Objective Data
-
Vital Signs:
Vital Signs
Temp Pulse Resp BP Pulse Ox
97.9 F 108 15 119/61 96
06/03/25 07:32 06/03/25 08:15 06/03/25 07:32 06/03/25 07:57 06/03/25 07:32
I&O
06/02/25 06/03/25 06/04/25
06:59 05:59 06:59
Output Total 400 / 400
Balance -400 / -400
Review of Systems
-
History Source: Patient
All other systems: Reviewed and negative
[2025-06-03 08:54] LABS: Troponin I 1.020 ng/ml
--- NOTE | 2025-06-03 09:00 | CON.NEURO4 ---
Consultation - Neurology 4
-
CONSULTING PHYSICIAN: Dr. Curry Eaton
REFERRING PHYSICIAN: Dr. Sal Zaidi
DICTATED BY: Dr. Curry Eaton
DATE/TIME OF REQUEST: 06/03/2025
DATE/TIME OF CONSULTATION: 06/03/2025
Reason for Consultation: Difficulty with speech
ASSESSMENT AND PLAN:
The patient is an 80 years old male with a past medical history of hypertension, s/p TAVR and BPH, who presented to the ED with the complaint of an episode of expressive aphasia lasting about 15 minutes. The last known normal was at around 1 PM
yesterday. The patient is back to his baseline at this time. The patient had a sense of dyspnea on climbing stairs and he went to an urgent care center 2 days ago and was found to have atrial fibrillation with a RVR. He was started on Eliquis and
was also advised to increase the metoprolol dose. The patient's neurologic examination was normal. He was not a candidate for intravenous thrombolytic therapy because he was on Eliquis and also he had returned to his baseline. The NIHSS = 0. The
patient appears to have had a transient ischemic attack versus CVA, the etiology of the patient's symptoms are likely related to atrial fibrillation.
MRI of the brain without contrast
Echocardiogram.
Continue Eliquis 5 mg twice a day.
History of Present Illness:
The patient is an 80 years old male with a past medical history of hypertension, s/p TAVR and BPH, who presented to the ED with the complaint of an episode of expressive aphasia lasting about 15 minutes. The last known normal was at around 1 PM
yesterday. The patient is back to his baseline at this time. The patient had a sense of dyspnea on climbing stairs and he went to an urgent care center 2 days ago and was found to have atrial fibrillation with a RVR. He was started on Eliquis and
was also advised to increase the metoprolol dose.
Past Medical History: Hypertension, s/p TAVR and BPH
Review of Systems:
The patient denies history of headache, dizziness, chest pain, shortness of breath, fever, chills, nausea and vomiting.
Neurologic Examination:
The patient is alert and oriented x 3,
Speech is clear,
The cranial nerves II to XII are grossly intact,
The motor strength is grossly 5/5 bilaterally in the upper and lower extremities,
The sensations are grossly intact bilaterally,
The cerebellar examination does not show limb ataxia.
NIHSS = 0
Vital Signs and Labs
-
Vital Signs and Labs:
Vital Signs
Temp Pulse Resp BP Pulse Ox
36.6 C 113 16 121/94 98
06/03/25 15:37 06/03/25 15:37 06/03/25 15:37 06/03/25 11:06 06/03/25 15:37
Lab Results
06/02/25 16:35
06/02/25 16:35
Sodium 136 mmol/L (135-145) 06/02/25 16:35
Potassium 4.4 mmol/L (3.5-5.1) 06/02/25 16:35
BUN 30 mg/dl (9-20) H 06/02/25 16:35
Glucose 133 mg/dl (70-99) H 06/02/25 16:35
Calcium 8.9 mg/dl (8.4-10.2) 06/02/25 16:35
LDL Cholesterol, Calc 87 mg/dl 06/03/25 01:27 EST
Medications
-
Active Medications
Generic Name Dose Route Start Last Admin
Trade Name Freq PRN Reason Stop Dose Admin
Acetaminophen 650 mg 06/03/25 01:17 EST
Acetaminophen 650 Mg Rectal Suppository RECTAL 07/01/25 01:16
Q4HPRN PRN
XIE, mild pain, or temp >100.4F
Acetaminophen 650 mg 06/03/25 01:17 EST 06/03/25 01:03 EST
Acetaminophen 325 Mg Tablet PO 07/01/25 01:16 650 mg
Q4HPRN PRN Administration
XIE, mild pain, or temp >100.4F
Amiodarone HCl 400 mg 06/03/25 16:00 06/03/25 15:27
Amiodarone 200 Mg Tablet PO 07/01/25 15:59 400 mg
TID JOANNE Administration
Apixaban 5 mg 06/03/25 08:00 06/03/25 07:52
Apixaban (Eliquis) 5 Mg Tablet PO 07/01/25 07:59 5 mg
BID JOANNE Administration
Aspirin 81 mg 06/03/25 08:00 06/03/25 07:52
Aspirin 81 Mg (Enteric Coated) Tablet PO 07/01/25 07:59 81 mg
DAILY JOANNE Administration
Diltiazem HCl 125 mg in 125 mls @ 0 mls/hr 06/03/25 01:17 EST
Cardizem IV
PER PROTOCOL JOANNE
Protocol
Per Protocol
Losartan Potassium 100 mg 06/03/25 08:00 06/03/25 09:05
Losartan 100 Mg Tablet PO 07/01/25 07:59 Not Given
On Hold: 06/03/25 08:55 DAILY JOANNE
Metoprolol Succinate 50 mg 06/03/25 20:00
Metoprolol 50 Mg Extended Release Tablet PO 07/01/25 19:59
BID JOANNE
Pantoprazole Sodium 40 mg 06/03/25 08:00 06/03/25 07:52
Pantoprazole 40 Mg Delayed Release Tablet PO 07/01/25 07:59 40 mg
DAILY JOANNE Administration
Pravastatin Sodium 20 mg 06/03/25 08:00 06/03/25 07:51
Pravastatin 20 Mg Tablet PO 07/01/25 07:59 20 mg
DAILY JOANNE Administration
Sodium Chloride 0 flush 06/03/25 02:00
Sodium Chloride 0.9% (Flush) Syringe IV 07/01/25 01:59
PER PROTOCOL JOANNE
Tamsulosin HCl 0.4 mg 06/03/25 22:00
Tamsulosin 0.4 Mg Capsule PO 07/01/25 21:59
HS JOANNE
Home Medications
�Medication �Instructions �Recorded
multivit,Ca,min-iron 8 mg-folic 1 tab PO DAILY Supplement 09/08/23
acid 200 mcg-lycopene 600 mcg
tablet (Centrum Men)
tamsulosin 0.4 mg capsule 0.4 mg PO HS Urinary Issue 09/08/23
aspirin 81 mg tablet,delayed 81 mg PO DAILY Blood clot 09/17/23
release prevention/tx #0 tabs
Lactobac no.2-Bifidobac no.1-S. 1 cap PO DAILY Supplement 06/02/25
thermo 112.5 billion cell capsule
(Visbiome)
apixaban 5 mg tablet (Eliquis) 5 mg PO BID Blood Clot 06/02/25
Prevention/Tx
cholecalciferol (vitamin D3) 50 50 mcg PO DAILY Supplement 06/02/25
mcg (2,000 unit) capsule
coenzyme Q10 100 mg tablet 100 mg PO DAILY Supplement 06/02/25
losartan 100 mg tablet 100 mg PO DAILY Blood Pressure 06/02/25
metoprolol succinate 25 mg 25 mg PO DAILY Blood Pressure 06/02/25
tablet,extended release 24 hr
(Toprol XL)
pravastatin 20 mg tablet 20 mg PO DAILY High Cholesterol 06/02/25
[2025-06-03 09:09] LABS: Magnesium 2.0 mg/dl (1.6-2.3)
[2025-06-03 09:16] LABS: Glycohemoglobin (HgbA1c) 5.2 % (4.0-5.9)
--- NOTE | 2025-06-03 09:16 | PTCARENOTE ---
Patient sent to MRI in a wheelchair
--- NOTE | 2025-06-03 14:24 | PTOTSP ---
Speech Therapy Evaluation:
Pt without precipitating or predisposing risk factors of dysphagia given brain MRI negative for acute intracranial abnormality. At bedside, oropharyngeal swallow appeared WFL. No chest imaging completed thus far, however WBC WNL, pt on room air, and
afebrile.
Recommend:
1. Regular solids and thin liquids
2. Meds as tolerated
3. General aspiration precautions
4. [employer] to s/o - please reconsult if indicated
[2025-06-03] MEDS: PACERONE 400 MG PO ×2 (15:27→22:15)
[2025-06-03] MEDS: TOPROL XL 50 MG PO (19:39)
--- NOTE | 2025-06-03 21:45 | PTCARENOTE ---
Assumed care of patient at change of shift. [facility] performed, patient a zero. AAOx3, tele remains afib (HR in the 90-110s at rest), and BP stable. Pt denies any pain or SOB at this time. Ambulates self in room. Reviewed POC w/ patient, call alvarado in
reach.
[2025-06-03] MEDS: FLOMAX 0.4 MG PO (22:15)
[2025-06-04] VITALS (9 sets, daily range): BP systolic 104–135; BP diastolic 65–99; PULSE 101–108; O2SAT 100; BMI 26.1
[2025-06-04 05:16] LABS: Troponin I 0.414 ng/ml
--- NOTE | 2025-06-04 07:00 | PTCARENOTE ---
Assumed care. Patient AO x 3, NIH 0. A-fib on tele 80-100's. Denies pain, palpations or shortness of breath. Independent walking in room and halls
[2025-06-04] MEDS: ELIQUIS 5 MG PO ×2 (08:07→19:30)
[2025-06-04] MEDS: PACERONE 400 MG PO ×2 (08:07→16:28)
[2025-06-04] MEDS: PROTONIX 40 MG PO (08:07)
[2025-06-04] MEDS: TOPROL XL 50 MG PO ×2 (08:07→19:30)
[2025-06-04] MEDS: ASPIR LOW (ENTERIC COATED) 81 MG PO (08:07)
[2025-06-04] MEDS: PRAVACHOL 20 MG PO (08:07)
--- NOTE | 2025-06-04 09:17 | W.PN.CARDCBS ---
Today's Communication / Plan
-
Rate control atrial fibrillation
Continue Eliquis anticoagulation
Plan for KOURTNEY/cardioversion 06/05/2025
Impression / Plan
-
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 Madi Navarrete
Impression:
TIA
Newly diagnosed atrial fibrillation
Abnormal troponin
TAVR with 26mm JUSTINE 3 Franco valve 09/16/2023
Obstructive sleep apnea
Hypertension
Dyslipidemia
Pre-existing RBBB
Carotid artery stenosis
History of facial BCC skin cancer- s/p Mohs
L RTC repair x 2
Cataract extraction
ECG #1: Atrial fibrillation with a rapid ventricular rate at 127 bpm, right bundle branch block and nonspecific ST and T wave abnormalities most noted in the inferolateral leads
ECG #2: Atrial fibrillation with a controlled ventricular rate of 97 bpm, right bundle branch block and nonspecific T wave abnormalities most noted in the inferolateral leads
Troponin #1 0.3-4 followed by 0.418 and 0.957
Echocardiogram Sep 20 2023 finds normal left ventricular size and function with ejection fraction of 60 to 65%. No wall motion abnormalities. Peak and mean gradients across the Franco CPN TAVR are are at 30 and 16 with trace aortic insufficiency.
There is mild TR.
Coronary angiography September 10, 2023: Mild nonobstructive coronary artery disease
Recommendations:
Transient ischemic attack-expressive aphasia on June 02
- No residual or recurrent neurologic symptoms
-New atrial fibrillation diagnosed June 01 at urgent care [facility] in [place] with symptoms beginning on May 31
-Repeat echocardiogram to reassess TAVR valve/valve related thrombus, less likely
-Patient initiated on Eliquis at day of diagnosis (06/01/25) and within 24 hours of symptom onset, continue Eliquis 5 mg twice daily
-Lipid profile 06/03/2025 suboptimal: Total cholesterol 160, triglycerides 102, LDL 87, HDL 53.
- Patient had been on pravastatin 20 mg nightly and was increased to 40 mg daily. Goal LDL less than 70 mg/dL if not ideally 55-60 mg/dL. will need repeat lipid profile in 3 months as an outpatient
-Neurology consulted and consult reviewed.
-CTA head and neck 06/02/2025 with atherosclerotic disease in the proximal ICAs without evidence of stenosis. No significant narrowing of the NIDHI or MCA.Calcification involving the V4 portions of the vertebral arteries bilaterally, which appears to
result in mild to moderate narrowing. On the left, there is a another more superior focus of mild to moderate narrowing of the vertebral artery 1 cm proximal to the basilar artery. There is no CT angiographic evidence for intracranial aneurysm. Mild
luminal irregularity of the P2 portion of the right posterior cerebral artery, with suggestion of mild to moderate narrowing. Calcific atherosclerotic disease involving the visualized superior thoracic aorta, with no significant dilation. No
evidence of acute intracranial abnormality on unenhanced CT of the head
-Brain MRI 06/03/2025: No evidence of acute intracranial abnormality. No evidence to suggest acute/subacute infarct. Mild to moderate atrophy. Craniocervical junction appears normal with no evidence for Chiari malformation. No gross abnormality of
the pituitary gland.
Newly diagnosed atrial fibrillation, presenting symptomatic with rapid ventricular rates
-Now on Cardizem infusion and rates are better controlled, he is now asymptomatic (no chest discomfort and no shortness of breath).
- Toprol-XL increased from 25 mg daily to 50 mg twice daily starting this morning to try to obtain better rate control
-Amiodarone 400 mg p.o. 3 times daily while hospitalized (up to 5 days max at this dose) then transition to 200 mg twice daily for 30 days, then 200 mg once daily
- Continue Eliquis 5 mg twice daily
- Continue telemetry monitoring and follow EKGs on amiodarone
- Plan for KOURTNEY/cardioversion 06/05/2025. Procedure details, indications and risks discussed with patient and he is agreeable to this plan.
- Long-term rhythm control management will need to consider ablation
Elevated and rising troponin values
No obstructive coronary artery disease from coronary angiography 09/2023
Likely noninfarct/non-LA related. Likely related to atrial fibrillation with rapid ventricular rate.
Continue to trend ECGs as there is some inferolateral ST and T abnormality
Consider outpatient ischemic evaluation
History of aortic stenosis, now status post TAVR September 2023
Check transthoracic echocardiogram
Progress Note - Brick Shader
Subjective
Date of Service: June 04, 2025
Seen and examined sitting out of bed to chair. Overall patient feels better with no further chest pain/pressure or shortness of breath. Remains in rapid atrial fibrillation with no symptoms. No recurrent or new neurologic symptoms. Patient
already had breakfast this morning
Objective
Labs:
06/02/25 16:35
06/02/25 16:35
Labs
Hgb 13.7 g/dL (13.0-18.0) 06/02/25 16:35
Hct 39.7 % (39.0-52.0) 06/02/25 16:35
Plt Count 198 10^3/uL (130-400) 06/02/25 16:35
Sodium 136 mmol/L (135-145) 06/02/25 16:35
Potassium 4.4 mmol/L (3.5-5.1) 06/02/25 16:35
BUN 30 mg/dl (9-20) H 06/02/25 16:35
Creatinine 1.0 mg/dL (0.7-1.3) 06/02/25 16:35
Glucose 133 mg/dl (70-99) H 06/02/25 16:35
Troponins
06/02/25 06/03/25 06/03/25
16:35 01:27 EST 04:40
Troponin I 0.324 H* 0.418 H* 0.957 H* D
06/03/25 06/04/25
08:15 04:15
Troponin I 1.020 H* 0.414 H*
Vital Signs and I&O:
Vital Signs
Temp Pulse Resp BP Pulse Ox
97.6 F 108 16 132/93 96
06/04/25 04:36 06/04/25 08:07 06/04/25 08:15 06/04/25 08:07 06/04/25 08:15
Vital Signs
Temp Pulse Resp BP Pulse Ox
97.6 F 108 16 132/93 96
06/04/25 04:36 06/04/25 08:07 06/04/25 08:15 06/04/25 08:07 06/04/25 08:15
Intake & Output
06/02/25 06/03/25 06/04/25 06/05/25
06:59 05:59 06:59 06:59
Intake Total 480 / 480
Output Total 400 / 400
Balance -400 / -400 480 / 480
Physical Exam
Physical Exam
GEN: No distress, awake, Ox3
HEENT: supple, anicteric, mmm
LUNGS: CTA, no wheezes/rales griselda
CV: Irregularly irregular, tachycardic. Positive S1-S2. No murmurs
ABD: soft, BS+, NT/ND
EXT: No edema, clubbing or cyanosis
NEURO: Gross non-focal
--- NOTE | 2025-06-04 09:53 | CM ---
Reviewed chart. Met with Mr. Moran to review discharge plans. He states prior to admission he resides with his spouse in a spilt level home with two steps to enter. He states he has seven steps to get to each level. He states his bedroom/full
bathroom are on the upper level. He states his other bathroom is on the lower level. He states prior to admission he was independent with ambulation and adls. He states he has a Bi-pap machine at home but currently not using it. He states he has a
prescription plan and uses mail order and [id number]. Will need to see his current functional level to see if he will have any skilled care needs. Medical work-up in progress. The discharge plan is to return home with his spouse when
medically stable.
[2025-06-04 13:09] LABS: ALT (SGPT) 18 U/L (0-50); AST (SGOT) 29 U/L (17-59); Albumin 4.4 g/dl (3.5-5.0); Alkaline Phosphatase 55 U/L (38-126); Blood Urea Nitrogen 20 mg/dl (9-20); Calcium 9.2 mg/dl (8.4-10.2); Carbon Dioxide 26 mmol/L (22-30); Chloride 105 mmol/L (98-107); Estimated Creatinine Clearance 55 ml/min; Glucose 109 mg/dl (70-99); Potassium 4.9 mmol/L (3.5-5.1); Sodium 138 mmol/L (135-145); Total Protein 7.2 g/dl (6.3-8.2); eGFR > 60.00
[2025-06-04 13:38] LABS: TSH 3.26 uIU/ml (0.47-4.68)
--- NOTE | 2025-06-04 15:39 | W.PN.HOSP.TC ---
Today's Communication/Plan
-
alfredito/cardioversion tomorrow
amio, bb
Assessment / Plan
Assessment / Plan
Gen-AAOx3, NAD
HEENT-NC, AT, anicteric, clear oral mm
Neck-supple
CV-irregular, no M, +S1/S2
Lungs-clear B/L
Abd-soft, NT, ND
Ext-no edema
Musculoskeletal-no cyanosis, clubbing
Skin-warm and dry
Neuro-grossly non-focal
Psych-calm, cooperative
TIA -transient speech difficulty characterized by nonsensical words, patient states it lasted for 5 minutes. Currently without any neurologic deficits.
CT brain on admission without acute disease. CTA without significant vascular occlusion. Calcification of vessels noted.
Brain MRI unremarkable for acute CVA
�Increase statin to 40 mg pravastatin
Patient denies history of TIA or stroke.
Rapid atrial fibrillation -new onset several days ago. Went to urgent care and was started on Eliquis 06/01. Transition off Cardizem drip to oral metoprolol, titrate dose. Cardiology consulted. Continue amiodarone. Check echocardiogram. Plan
for ALFREDITO/cardioversion 06/05. Continue Eliquis
Troponin elevation -no obstructive CAD on prior cardiac catheterization. Suspect acute nonischemic myocardial injury due to rapid atrial fibrillation.
Aortic stenosis -s/p TAVR, 09/16/2023.
Essential hypertension -stable. Blood pressure somewhat low. Hold losartan.
Hyperlipidemia -on pravastatin.
Alcohol use disorder -does not drink daily. States he drinks 4 times a month but when he does drink he tends to have multiple drinks at a time. Last drink was evening. Low risk for alcohol withdrawal but monitor closely.
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
Cataracts
Full code
Anticipated Discharge: 24 - 48 hours
Subjective/Interval History
-
Date of Service: June 04, 2025
No acute events overnight
Objective Data
-
Labs:
Laboratory Results
06/04/25
12:41
Sodium 138
Potassium 4.9
Chloride 105
Carbon Dioxide 26
BUN 20
Creatinine 1.0
Glucose 109 H
Calcium 9.2
Total Bilirubin 0.9
AST 29
ALT 18
Alkaline Phosphatase 55
Vital Signs:
Vital Signs
Temp Pulse Resp BP Pulse Ox
97.9 F 64 16 132/93 99
06/04/25 15:07 06/04/25 15:07 06/04/25 15:07 06/04/25 08:07 06/04/25 15:07
I&O
06/03/25 06/04/25 06/05/25
05:59 06:59 06:59
Intake Total 480 / 480
Output Total 400 / 400
Balance -400 / -400 480 / 480
Review of Systems
-
History Source: Patient
All other systems: Not reviewed unless documented
Data Reviewed
-
MRI: Report Reviewed by me
Labs: Labs Reviewed by me
[2025-06-04] MEDS: PACERONE PO (22:47)
[2025-06-04] MEDS: FLOMAX 0.4 MG PO (22:49)
--- NOTE | 2025-06-05 00:35 | W.PN.UPDATE ---
Update Note
Progress Note Update
RN reports that at 2126 pt converted from afib to SB with HR in 40s. Metoprolol given at 1930. Will add parameters for amio.
Will keep NPO overnight (was for cardioversion in am) and watch rhythm overnight.
--- NOTE | 2025-06-05 00:41 | PTCARENOTE ---
At approx 21:27, patient spontaneously converted to Sinus Rodolfo. EKG obtained and confirmed SB/ sinus arrhythmia. HR in the 40-50's at rest. Patient aware. Instructed patient to maintain NPO status till further notice. NIH score zero. Ambulates self
in room. Denies any pain. POC reviewed w/ patient and family. Call alvarado in reach.
[2025-06-05 03:50] VITALS: BP 134/78
[2025-06-05 03:59] VITALS: BMI 26.4
[2025-06-05 04:30] LABS: ALT (SGPT) 15 U/L (0-50); AST (SGOT) 24 U/L (17-59); Albumin 3.6 g/dl (3.5-5.0); Alkaline Phosphatase 45 U/L (38-126); Blood Urea Nitrogen 26 mg/dl (9-20); Calcium 8.8 mg/dl (8.4-10.2); Carbon Dioxide 28 mmol/L (22-30); Chloride 104 mmol/L (98-107); Estimated Creatinine Clearance 55 ml/min; Glucose 108 mg/dl (70-99); Magnesium 1.8 mg/dl (1.6-2.3); Potassium 4.3 mmol/L (3.5-5.1); Sodium 136 mmol/L (135-145); Total Protein 6.1 g/dl (6.3-8.2); eGFR > 60.00
[2025-06-05 04:34] LABS: Hematocrit 35.6 % (39.0-52.0); Hemoglobin 12.1 g/dL (13.0-18.0); Mean Corp Hgb Conc. 34.0 g/dL (33.0-37.0); Mean Corpuscular Volume 94.2 fL (80.0-94.0); Platelet Count 151 10^3/uL (130-400); Red Cell Dist. Width 12.1 % (11.5-14.5)
[2025-06-05 07:09] VITALS: BP 149/80
[2025-06-05] MEDS: ASPIR LOW (ENTERIC COATED) 81 MG PO (09:25)
[2025-06-05] MEDS: PRAVACHOL 40 MG PO (09:26)
[2025-06-05] MEDS: ELIQUIS 5 MG PO (09:26)
[2025-06-05] MEDS: PROTONIX 40 MG PO (09:26)
[2025-06-05] MEDS: PACERONE 200 MG PO (09:26)
[2025-06-05] MEDS: PACERONE PO (09:32)
[2025-06-05] MEDS: TOPROL XL PO (09:38)
--- NOTE | 2025-06-05 10:00 | CM ---
Reviewed chart. Met with Mr. Moran to review discharge plans. He states he is feeling well. Prior to admission he resides with his spouse in a spilt level home with two steps to enter. He has seven steps to get to each level. His bedroom/full
bathroom are on the upper level. His other bathroom is on the lower level. Prior to admission he was independent with ambulation and adls. He has a Bi-pap machine at home but currently not using it. He has a prescription plan and uses mail order
and [facility]. Will need to see his current functional level to see if he will have any skilled care needs. Medical work-up in progress. The discharge plan is to return home with his spouse when medically stable.
Initialized on 06/04/25 09:53 - END OF NOTE
[2025-06-05 11:45] VITALS: BP 125/66
--- NOTE | 2025-06-05 13:58 | W.PN.CARDCBS ---
Today's Communication / Plan
-
Amiodarone 200 mg twice daily x 1 month then daily
Metoprolol 25 mg twice daily
Lifelong oral anticoagulation
Can be considered for outpatient cardiac ablation
I have no objection to discharge later today
Has outpatient visit scheduled with his outpatient slime plant operator helper Dr. Salvador Navarrete on August 07, 2024
Impression / Plan
-
Primary slime plant operator helper is Dr. Madi Navarrete
Impression:
TIA
Newly diagnosed atrial fibrillation
Abnormal troponin
TAVR with 26mm JUSTINE 3 Franco valve 09/16/2023
Obstructive sleep apnea
Hypertension
Dyslipidemia
Pre-existing RBBB
Carotid artery stenosis
History of facial BCC skin cancer- s/p Mohs
L RTC repair x 2
Cataract extraction
ECG #1: Atrial fibrillation with a rapid ventricular rate at 127 bpm, right bundle branch block and nonspecific ST and T wave abnormalities most noted in the inferolateral leads
ECG #2: Atrial fibrillation with a controlled ventricular rate of 97 bpm, right bundle branch block and nonspecific T wave abnormalities most noted in the inferolateral leads
Troponin #1 0.3-4 followed by 0.418 and 0.957
Echocardiogram Sep 20 2023 finds normal left ventricular size and function with ejection fraction of 60 to 65%. No wall motion abnormalities. Peak and mean gradients across the Franco CPN TAVR are are at 30 and 16 with trace aortic insufficiency.
There is mild TR.
Coronary angiography September 10, 2023: Mild nonobstructive coronary artery disease
Recommendations:
Transient ischemic attack-expressive aphasia on June 02
- No residual or recurrent neurologic symptoms
-New atrial fibrillation diagnosed June 01 at urgent care down in [place] with symptoms beginning on May 31
- Continue Eliquis 5 mg twice daily lifelong
-Lipid profile 06/03/2025 suboptimal: Total cholesterol 160, triglycerides 102, LDL 87, HDL 53.
- Patient had been on pravastatin 20 mg nightly and was increased to 40 mg daily. Goal LDL less than 70 mg/dL if not ideally 55-60 mg/dL. will need repeat lipid profile in 3 months as an outpatient
-Neurology consulted and consult reviewed.
-CTA head and neck 06/02/2025 with atherosclerotic disease in the proximal ICAs without evidence of stenosis. No significant narrowing of the NIDHI or MCA.Calcification involving the V4 portions of the vertebral arteries bilaterally, which appears to
result in mild to moderate narrowing. On the left, there is a another more superior focus of mild to moderate narrowing of the vertebral artery 1 cm proximal to the basilar artery. There is no CT angiographic evidence for intracranial aneurysm. Mild
luminal irregularity of the P2 portion of the right posterior cerebral artery, with suggestion of mild to moderate narrowing. Calcific atherosclerotic disease involving the visualized superior thoracic aorta, with no significant dilation. No
evidence of acute intracranial abnormality on unenhanced CT of the head
-Brain MRI 06/03/2025: No evidence of acute intracranial abnormality. No evidence to suggest acute/subacute infarct. Mild to moderate atrophy. Craniocervical junction appears normal with no evidence for Chiari malformation. No gross abnormality of
the pituitary gland.
Newly diagnosed atrial fibrillation, presenting symptomatic with rapid ventricular rates
- Would discharge on Toprol XL 25 mg twice daily
- Given asymptomatic bradycardia will lower amiodarone to 200 mg twice daily at discharge x 1 month and 200 mg daily
- Continue Eliquis 5 mg twice daily
- Continue telemetry monitoring and follow EKGs on amiodarone
- Long-term rhythm control management will need to consider ablation. I discussed AF ablation in detail with the patient including an approximate 70% chance success with paroxysmal atrial fibrillation and warned of thousand risk of [place] stroke
and 2% periprocedural complication rate. If he has side effect profile on amiodarone metoprolol or breakthrough AF he is interested in considering ablation. I communicated with his outpatient slime plant operator helper via text Dr. Navarrete who the patient is
seeing on August 07, 2024 and after discussion there may elect to refer back to electrophysiology at [facility].
Elevated and rising troponin values
Consider outpatient ischemic evaluation
History of aortic stenosis, now status post TAVR September 2023
Check transthoracic echocardiogram
I have no objection to discharge on June 05, 2025
Progress Note - Can Technician
Subjective
Date of Service: June 05, 2025
Sinus rhythm
Objective
Labs:
06/05/25 03:56
06/05/25 03:56
Labs
Hgb 12.1 g/dL (13.0-18.0) L 06/05/25 03:56
Hct 35.6 % (39.0-52.0) L 06/05/25 03:56
Plt Count 151 10^3/uL (130-400) D 06/05/25 03:56
Sodium 136 mmol/L (135-145) 06/05/25 03:56
Potassium 4.3 mmol/L (3.5-5.1) 06/05/25 03:56
BUN 26 mg/dl (9-20) H 06/05/25 03:56
Creatinine 1.0 mg/dL (0.7-1.3) 06/05/25 03:56
Glucose 108 mg/dl (70-99) H 06/05/25 03:56
Troponins
06/02/25 06/03/25 06/03/25
16:35 01:27 EST 04:40
Troponin I 0.324 H* 0.418 H* 0.957 H* D
06/03/25 06/04/25
08:15 04:15
Troponin I 1.020 H* 0.414 H*
Vital Signs and I&O:
Vital Signs
Temp Pulse Resp BP Pulse Ox
97.4 F 42 16 134/78 100
06/05/25 11:43 06/05/25 06:00 06/05/25 11:43 06/05/25 03:50 06/05/25 11:43
Vital Signs
Temp Pulse Resp BP Pulse Ox
97.4 F 42 16 134/78 100
06/05/25 11:43 06/05/25 06:00 06/05/25 11:43 06/05/25 03:50 06/05/25 11:43
Intake & Output
06/03/25 06/04/25 06/05/25 06/06/25
05:59 06:59 06:59 06:59
Intake Total 480 / 480 360 / 360
Output Total 400 / 400
Balance -400 / -400 480 / 480 360 / 360
Physical Exam
Physical Exam
����Physical Exam
���������������������General:��no apparent distress, not acutely ill
���������������������������Neck:��supple. no meningeal signs. normal psoterior pharynx
������������������������
���������������������������Heart:��s1/s2 regular rate and rhythm, no murmur. equal radial pulses.
��������������������������Lungs: ��no acute respiratory distress. clear bilaterally
����������������������Abdomen:�normal bowel sounds. not tender. no CVAT
��������������������������Neuro:��alert and oriented. no focal neurological deficits
������������������������������Skin: ��no rash
�����������������������Psychiatric:�well kept. interactive and cooperative
�����������������������Extremities:��no edema. no calf tenderness. negative homans. good distal pulses
��
�
--- NOTE | 2025-06-05 14:08 | W.PN.HOSP.TC ---
Addendum entered and electronically signed by Magnus Cristina MD 06/06/25 15:51:
[id number]
Original Note:
Today's Communication/Plan
-
Toprol 25 mg twice daily
Amiodarone load, 200 mg twice daily for 1 month then 200 mg daily
Pravastatin 40 mg
Follow-up PCP, cardiology, neurology outpatient
Assessment / Plan
Assessment / Plan
Gen-AAOx3, NAD
HEENT-NC, AT, anicteric, clear oral mm
Neck-supple
CV-irregular, no M, +S1/S2
Lungs-clear B/L
Abd-soft, NT, ND
Ext-no edema
Musculoskeletal-no cyanosis, clubbing
Skin-warm and dry
Neuro-grossly non-focal
Psych-calm, cooperative
TIA -transient speech difficulty characterized by nonsensical words, patient states it lasted for 5 minutes. Currently without any neurologic deficits.
CT brain on admission without acute disease. CTA without significant vascular occlusion. Calcification of vessels noted.
Brain MRI unremarkable for acute CVA
�Increase statin to 40 mg pravastatin
Patient denies history of TIA or stroke.
Rapid atrial fibrillation -new onset several days ago. Went to urgent care and was started on Eliquis 06/01. Converted to sinus rhythm on amio. Transitioned off Cardizem drip. Cont oral metoprolol, Toprol 25mg BID; Cardiology consulted.
Continue amiodarone 200mg BID load for 1 month, then daily. Continue Eliquis
Troponin elevation -no obstructive CAD on prior cardiac catheterization. Suspect acute nonischemic myocardial injury due to rapid atrial fibrillation.
Aortic stenosis -s/p TAVR, 09/16/2023.
Essential hypertension -stable. Blood pressure somewhat low. Hold losartan.
Hyperlipidemia -on pravastatin.
Alcohol use disorder -does not drink daily. States he drinks 4 times a month but when he does drink he tends to have multiple drinks at a time. Last drink was evening. Low risk for alcohol withdrawal but monitor closely.
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
Cataracts
Full code
More than 30 minutes spent in discharge including
Final examination of the patient
Summarizing hospital stay
Instructions for continuing care to all relevant caregivers
Preparation of discharge records, prescriptions, and referral forms
Total time spent (in minutes): 36
Anticipated Discharge: Today
Subjective/Interval History
-
Date of Service: June 05, 2025
converted to sinus
Objective Data
-
Labs:
Laboratory Results
06/05/25
03:56
WBC 5.8
Hgb 12.1 L
Hct 35.6 L
Plt Count 151 D
Sodium 136
Potassium 4.3
Chloride 104
Carbon Dioxide 28
BUN 26 H
Creatinine 1.0
Glucose 108 H
Calcium 8.8
Total Bilirubin 0.6
AST 24
ALT 15
Alkaline Phosphatase 45
Vital Signs:
Vital Signs
Temp Pulse Resp BP Pulse Ox
97.4 F 42 16 134/78 100
06/05/25 11:43 06/05/25 06:00 06/05/25 11:43 06/05/25 03:50 06/05/25 11:43
I&O
06/04/25 06/05/25 06/06/25
06:59 06:59 06:59
Intake Total 480 / 480 360 / 360
Balance 480 / 480 360 / 360
Review of Systems
-
History Source: Patient
All other systems: Not reviewed unless documented
Data Reviewed
-
MRI: Report Reviewed by me
Labs: Labs Reviewed by me
--- NOTE | 2025-06-05 14:10 | W.DS.TRANS ---
DC Summary - [employer]
-
Discharge Instructions:
Discharge Diagnosis/Procedures TIA
Afib
Diet Low Cholesterol,Low Fat
Activity As tolerated,No strenuous activity
Blood Work cbc and bmp in 1 week
Instructions:
Stand-Alone Forms:
Changes to Home Medications: Yes
Discharge Medications:
DC Medications w/original date entered in [employer]
multivit,Ca,min-iron 8 mg-folic acid 200 mcg-lycopene 600 mcg tablet (Centrum Men) 1 tab PO DAILY Supplement 09/08/23
tamsulosin 0.4 mg capsule 0.4 mg PO HS Urinary Issue 09/08/23
aspirin 81 mg tablet,delayed release 81 mg PO DAILY Blood clot prevention/tx #0 tabs 09/17/23
Lactobac no.2-Bifidobac no.1-S. thermo 112.5 billion cell capsule (Visbiome) 1 cap PO DAILY Supplement 06/02/25
apixaban 5 mg tablet (Eliquis) 5 mg PO BID Blood Clot Prevention/Tx 06/02/25
cholecalciferol (vitamin D3) 50 mcg (2,000 unit) capsule 50 mcg PO DAILY Supplement 06/02/25
coenzyme Q10 100 mg tablet 100 mg PO DAILY Supplement 06/02/25
amiodarone 200 mg tablet (Pacerone) 200 mg PO BID 30 days #60 tabs 06/05/25
metoprolol succinate 25 mg tablet,extended release 24 hr 25 mg PO BID 30 days #60 tabs 06/05/25
pravastatin 40 mg tablet 40 mg PO DAILY 30 days #30 tabs 06/05/25
Home Medication Changes
amiodarone 200 mg tablet (Pacerone) 200 mg PO BID 30 days #60 tabs 06/05/25
metoprolol succinate 25 mg tablet,extended release 24 hr 25 mg PO BID 30 days #60 tabs 06/05/25
pravastatin 40 mg tablet 40 mg PO DAILY 30 days #30 tabs 06/05/25
Pending Results: No
== END 2025-06-05 15:21 | disposition home or self-care (01) | DRG 69 ==
LOC: IVU 23:05
PROVIDERS: Emergency Medicine; Hospitalist; Nurse Practitioner; Registered Nurse; ADMITTING PHYSICIAN Hospitalist; ATTENDING PHYSICIAN Internal Medicine; CONSULT PHYSICIAN Internal Medicine Cardiovascular Disease; CONSULT PHYSICIAN Psychiatry & Neurology Neurology; EMERGENCY PHYSICIAN Emergency Medicine; FAMILY PHYSICIAN Family Medicine
DX: G45.9 Transient cerebral ischemic attack, unspecified (principal); R47.01 Aphasia; I5A Non-ischemic myocardial injury (non-traumatic); I48.91 Unspecified atrial fibrillation; Z79.82 Long term (current) use of aspirin; Z79.01 Long term (current) use of anticoagulants; Z79.899 Other long term (current) drug therapy; Z85.828 Personal history of other malignant neoplasm of skin; Z95.2 Presence of prosthetic heart valve; I10 Essential (primary) hypertension; N40.0 Benign prostatic hyperplasia without lower urinary tract symptoms; E78.00 Pure hypercholesterolemia, unspecified; G47.33 Obstructive sleep apnea (adult) (pediatric); I25.10 Atherosclerotic heart disease of native coronary artery without angina pectoris; I45.10 Unspecified right bundle-branch block; Z86.0100 Personal history of colon polyps, unspecified; R29.700 NIHSS score 0; Z87.891 Personal history of nicotine dependence
CPT/HCPCS: 70496; 70498; 70551; 80053; 80061; 83036; 83735; 84443; 84484; 85025; 85027; 92610; 93005; 93306; 96365; 96366; 97162; 97166; 99291; Q9967